=== PATIENT | male | born 1940 | race Caucasian/White ===

== ENCOUNTER 2016-07-24 18:37 | Emergency (ER) | payer MEDICARE, OTHER ==
[2016-07-24] MEDS ORDERED: NITROGLYCERIN SL TABS 0.4 MG TAB SUBLINGUAL STA (19:08)
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
[2016-07-24 19:34] LABS: Basophils % (A) 0 %; CH 29.3; Eosinophils % (A) 0 %; HCT 42.7 % (39.0-53.0); HDW 2.72; HGB 14.1 gm/dL (13.0-17.5); Luc # (Auto) 0.21; Luc % (Auto) 3; Lymphocytes # (A) 0.6 k/uL (1.0-4.8); Lymphocytes % (A) 9 %; MCH 28.6 pg (25.0-35.0); MCV 86.8 fL (80.0-100.0); Mean Platelet Volume 7.9; Monocytes # (A) 0.5 k/uL (0-1.0); Monocytes % (A) 8 %; Neutrophils # (A) 5.1 k/uL (1.3-7.7); Neutrophils % (A) 79 %; RBC 4.92 m/uL (4.30-5.90); RDW 13.3 % (11.5-15.5); WBC 6.4 k/uL (3.8-10.6); WBC (Perox) 6.66
[2016-07-24 19:44] LABS: ALT 37 U/L (21-72); AST 27 U/L (17-59); Alkaline Phosphatase 78 U/L (38-126); Anion Gap 11 mmol/L; Blood Urea Nitrogen 16 mg/dL (9-20); Calcium 9.8 mg/dL (8.4-10.2); Carbon Dioxide 26 mmol/L (22-30); Chloride 104 mmol/L (98-107); Glucose 112 mg/dL (74-99); Magnesium 1.9 mg/dL (1.6-2.3); Non-African American GFR(MDRD) >60 (>60 ml/min/1.73 sqM); Potassium 4.7 mmol/L (3.5-5.1); Sodium 141 mmol/L (137-145); Total Bilirubin 0.5 mg/dL (0.2-1.3); Total Protein 6.3 g/dL (6.3-8.2)
[2016-07-24 19:49] LABS: INR 1.1 (<1.1); Partial Thromboplastin Time 23.5 sec (22.0-30.0); Prothrombin Time 10.7 sec (9.0-12.0)
[2016-07-24 20:00] LABS: Creatine Kinase 149 U/L (55-170)
[2016-07-24 20:13] LABS: Troponin I <0.012 ng/mL (0.000-0.034)
[2016-07-24 20:22] LABS: Creatine Kinase MB 2.6 ng/mL (0.0-2.4)
--- NOTE | 2016-07-24 20:30 | XR ---
EXAMINATION TYPE: XR chest 2V DATE OF EXAM: 07/24/2016 8:14 PM COMPARISON: Prior chest x-ray 06 October 2015 HISTORY: Chest pain, coronary artery disease TECHNIQUE: Frontal and lateral views of the chest are obtained. FINDINGS: There is no focal air space opacity, pleural effusion, or pneumothorax seen. The cardiac silhouette size is within normal limits. There are overlying cardiac leads. Rib deformities on the le ft are chronic compatible with chronic fractures. Postop changes noted to the right shoulder. Promine nt lung volumes suggests underlying COPD. Compression fracture in the midthoracic spine is stable. Th e osseous structures are intact. IMPRESSION: No acute cardiopulmonary process.
[2016-07-24] MEDS ORDERED: HYDROcodone/APAP 5-325MG 1 EACH TAB PO STA (20:49)
[2016-07-24 21:36] VITALS: BP 160/78; PULSE 75; RESP 16; TEMP 98.2
== END 2016-07-24 21:35 | disposition home or self-care (01) ==
LOC: EC 18:37
DX: R07.89 Other chest pain (principal); T45.0X5A Adverse effect of antiallergic and antiemetic drugs, initial encounter; Z95.5 Presence of coronary angioplasty implant and graft; I25.10 Atherosclerotic heart disease of native coronary artery without angina pectoris; L21.9 Seborrheic dermatitis, unspecified; E78.5 Hyperlipidemia, unspecified; G47.30 Sleep apnea, unspecified; Z87.891 Personal history of nicotine dependence; Z91.040 Latex allergy status; Z79.82 Long term (current) use of aspirin; Z79.02 Long term (current) use of antithrombotics/antiplatelets; Z79.899 Other long term (current) drug therapy
CPT/HCPCS: 36415; 71020; 80053; 82550; 82553; 83735; 83880; 84484; 85025; 85379; 85610; 85730; 93005; 99285

== ENCOUNTER 2016-07-25 21:00 | Observation (INO) | payer MEDICARE, OTHER ==
[2016-07-25] MEDS ORDERED: SODIUM CHLORIDE 0.9% 1,000 ML IV STA (21:40)
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
--- NOTE | 2016-07-25 22:13 | XR ---
EXAMINATION TYPE: XR chest 2V DATE OF EXAM: 07/25/2016 10:09 PM COMPARISON: 07/24/2016 HISTORY: Weakness and dizziness TECHNIQUE: Frontal and lateral views of the chest are obtained. FINDINGS: There is no heart failure nor confluent pneumonic infiltrate. There are no hilar masses. T here is multiple left-sided healed rib fractures. Costophrenic angles are clear. IMPRESSION: No active cardiopulmonary disease. No change compared to yesterday.
--- NOTE | 2016-07-25 22:30 | CT ---
EXAMINATION TYPE: CT brain wo con DATE OF EXAM: 07/25/2016 10:19 PM COMPARISON: NONE HISTORY: Weakness today CT DLP: 1121 mGycm Automated exposure control for dose reduction was used. FINDINGS: There is cerebral cortical atrophy. There is no mass effect nor midline shift. There is no sign of in tracranial hemorrhage. The calvarium is intact. IMPRESSION: Cerebral atrophy. No acute intracranial abnormality.
[2016-07-25 22:33] LABS: Aty Lym Flag Moderate; CH 29.5; CHCM 34.1; HCT 40.4 % (39.0-53.0); HDW 2.72; HGB 13.5 gm/dL (13.0-17.5); MCH 28.9 pg (25.0-35.0); MCHC 33.3 g/dL (31.0-37.0); MCV 86.9 fL (80.0-100.0); Mean Platelet Volume 7.9; RBC 4.65 m/uL (4.30-5.90); RDW 13.6 % (11.5-15.5); WBC 5.6 k/uL (3.8-10.6); WBC (Perox) 5.79
[2016-07-25 22:45] LABS: ALT 37 U/L (21-72); AST 35 U/L (17-59); Alkaline Phosphatase 59 U/L (38-126); Anion Gap 10 mmol/L; Blood Urea Nitrogen 18 mg/dL (9-20); Calcium 9.4 mg/dL (8.4-10.2); Carbon Dioxide 25 mmol/L (22-30); Chloride 107 mmol/L (98-107); Glucose 118 mg/dL (74-99); Non-African American GFR(MDRD) >60 (>60 ml/min/1.73 sqM); Potassium 4.3 mmol/L (3.5-5.1); Sodium 142 mmol/L (137-145); Total Bilirubin 0.4 mg/dL (0.2-1.3); Total Protein 5.5 g/dL (6.3-8.2)
[2016-07-25 22:46] LABS: Partial Thromboplastin Time 23.7 sec (22.0-30.0); Prothrombin Time 10.6 sec (9.0-12.0)
[2016-07-25 22:51] LABS: Creatine Kinase 333 U/L (55-170)
[2016-07-25 22:54] LABS: Add Differential Manual Differential
[2016-07-25 22:56] LABS: Nucleated Red Blood Cells 0 /100 WBC (0-0); Total Cells Counted 100
[2016-07-25 22:57] LABS: Manual Review Performed
[2016-07-25 23:04] LABS: Troponin I <0.012 ng/mL (0.000-0.034)
[2016-07-25 23:06] LABS: Creatine Kinase MB 5.6 ng/mL (0.0-2.4)
[2016-07-25 23:10] LABS: Appearance,Urine Clear (Clear); Bilirubin,Urine Negative (Negative); Glucose,Urine (UA) Negative (Negative); Ketones,Urine Trace (Negative); Leukocyte Esterase,Urine Negative (Negative); Nitrite,Urine Negative (Negative); Protein,Urine Trace (Negative); UA Billing (MACRO vs. MICRO) CHEM; Urobilinogen,Urine <2.0 mg/dL (<2.0)
[2016-07-25] MEDS ORDERED: HYDROcodone/APAP 5-325MG 1 EACH TAB PO STA (23:48)
[2016-07-25] MEDS ORDERED: NITROGLYCERIN SL TABS 0.4 MG TAB SUBLINGUAL PRN (23:57)
[2016-07-26 00:45] VITALS: BMI 29.5
[2016-07-26] MEDS: NITROGLYCERIN OINT 1 INCH/GM PACKET TOPICAL SCH ×3 (01:15→12:07)
[2016-07-26 02:56] LABS: Cholesterol 137 mg/dL (<200); HDL Cholesterol 37 mg/dL (40-60); Triglycerides 135 mg/dL (<150)
[2016-07-26 03:01] LABS: Creatine Kinase 305 U/L (55-170)
[2016-07-26 03:15] LABS: Troponin I <0.012 ng/mL (0.000-0.034)
[2016-07-26 03:23] LABS: Creatine Kinase MB 5.3 ng/mL (0.0-2.4)
[2016-07-26] MEDS: ALPRAZolam 0.25 MG TAB PO PRN ×3 (04:19→14:44)
[2016-07-26] MEDS: HYDROcodone/APAP 5-325MG 1 EACH TAB PO PRN ×2 (05:39→11:59)
[2016-07-26] MEDS ORDERED: ASPIRIN 325 MG TAB PO SCH (09:00)
[2016-07-26] MEDS ORDERED: CLOPIDOGREL 75 MG TAB PO SCH (09:00)
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
[2016-07-26 09:30] LABS: Creatine Kinase 338 U/L (55-170)
[2016-07-26 09:43] LABS: Troponin I <0.012 ng/mL (0.000-0.034)
[2016-07-26 09:53] LABS: Creatine Kinase MB 6.1 ng/mL (0.0-2.4)
[2016-07-26 10:08] LABS: Glucose,Whole Blood 98 mg/dL (75-99)
[2016-07-26 12:44] VITALS: BP 148/72; PULSE 59; RESP 18; TEMP 97.7
[2016-07-26] MEDS ORDERED: ESCITALOPRAM 5 MG TAB PO STA (12:51)
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
[2016-07-26] MEDS ORDERED: amLODIPine 5 MG TAB PO SCH (21:00)
[2016-07-26] MEDS ORDERED: ATORVASTATIN 80 MG TAB PO SCH (21:00)
== END 2016-07-26 15:27 | disposition home or self-care (01) ==
LOC: EC 21:00 → 3OBS 23:57 → INTOOBSV 23:57
PROVIDERS: ADMIT Internal Medicine; ATTEND Internal Medicine
DX: R07.89 Other chest pain (principal); R42 Dizziness and giddiness; R00.1 Bradycardia, unspecified; I45.2 Bifascicular block; I11.9 Hypertensive heart disease without heart failure; E78.5 Hyperlipidemia, unspecified; K21.9 Gastro-esophageal reflux disease without esophagitis; F41.9 Anxiety disorder, unspecified; M19.90 Unspecified osteoarthritis, unspecified site; G47.30 Sleep apnea, unspecified; I25.10 Atherosclerotic heart disease of native coronary artery without angina pectoris; F41.0 Panic disorder [episodic paroxysmal anxiety]; Z91.14 Patient's other noncompliance with medication regimen; Z99.89 Dependence on other enabling machines and devices; Z79.899 Other long term (current) drug therapy; Z86.73 Personal history of transient ischemic attack (TIA), and cerebral infarction without residual deficits; Z95.5 Presence of coronary angioplasty implant and graft; Z89.021 Acquired absence of right finger(s); Z87.891 Personal history of nicotine dependence; Z79.82 Long term (current) use of aspirin; Z79.02 Long term (current) use of antithrombotics/antiplatelets; Z88.8 Allergy status to other drugs, medicaments and biological substances; Z80.1 Family history of malignant neoplasm of trachea, bronchus and lung
CPT/HCPCS: 36415; 93005; 85379; 84439; 84481; 80061; 80053; 82550 ×2; 82553 ×2; 83735; 84100; 84443; 84484 ×2; 85025; 85610; 85730; 81003; 71020; 70450; 99285; 96360; 96361; G0378 ×2

== ENCOUNTER → 2016-09-11 | Outpatient (CLI) | payer MEDICARE, OTHER ==
[2016-09-11 15:19] LABS: CH 28.8; CHCM 31.8; HCT 40.2 % (39.0-53.0); HDW 2.65; HGB 13.1 gm/dL (13.0-17.5); MCH 29.5 pg (25.0-35.0); MCHC 32.5 g/dL (31.0-37.0); Mean Platelet Volume 7.5; RBC 4.42 m/uL (4.30-5.90); RDW 13.2 % (11.5-15.5); WBC 6.2 k/uL (3.8-10.6)
== END | disposition home or self-care (01) ==
LOC: LABWHC1 14:59
PROVIDERS: ATTEND Internal Medicine Interventional Cardiology
DX: I25.10 Atherosclerotic heart disease of native coronary artery without angina pectoris (principal); K92.2 Gastrointestinal hemorrhage, unspecified
CPT/HCPCS: 36415; 82272; 85027

== ENCOUNTER → 2017-09-16 | Outpatient (CLI) | payer MEDICARE, OTHER ==
[2017-09-16 15:19] LABS: HCT 34.6 % (39.0-53.0); HGB 10.8 gm/dL (13.0-17.5); Hypochromasia Moderate; MCH 24.6 pg (25.0-35.0); MCHC 31.1 g/dL (31.0-37.0); MCV 79.2 fL (80.0-100.0); Mean Platelet Volume 7.7; Platelet Count 302 k/uL (150-450); RBC 4.38 m/uL (4.30-5.90); RDW 14.1 % (11.5-15.5); WBC 8.8 k/uL (3.8-10.6)
[2017-09-16 15:38] LABS: Anion Gap 8 mmol/L; Blood Urea Nitrogen 30 mg/dL (9-20); Carbon Dioxide 28 mmol/L (22-30); Chloride 104 mmol/L (98-107); Potassium 4.8 mmol/L (3.5-5.1); Sodium 140 mmol/L (137-145)
== END | disposition home or self-care (01) ==
LOC: LABPAT 14:33
PROVIDERS: ATTEND Internal Medicine Interventional Cardiology
DX: Z01.812 Encounter for preprocedural laboratory examination (principal); I25.10 Atherosclerotic heart disease of native coronary artery without angina pectoris
CPT/HCPCS: 36415; 80051; 82565; 84520; 85027

== ENCOUNTER 2017-09-30 08:50 | Day surgery (SDC) | payer MEDICARE, OTHER ==
[2017-09-24 16:04] VITALS: BMI 29.0
[~2017-09-30 08:50] MED LIST: ALPRAZolam 0.25 MG TAB PO PRN; ALPRAZolam 0.5 MG TAB PO PRN; ASPIRIN 325 MG TAB PO STA; ATORVASTATIN 80 MG TAB PO STA; NITROGLYCERIN SL TABS 0.4 MG TAB SUBLINGUAL PRN; SODIUM CHLORIDE 0.9% 1,000 ML in EMPTY BAG 1 BAG IV ONE
[2017-09-30 10:05] VITALS: PULSE 61; TEMP 97.9
[2017-09-30] MEDS ORDERED: LIDOCAINE 2% INJ 20 MG/ML (20 ML MDV) ONE (10:40)
[2017-09-30] MEDS ORDERED: MIDAZOLAM 2 MG/2 ML VIAL ONE (10:40)
[2017-09-30] MEDS ORDERED: diphenhydrAMINE 50 MG/ML 1 ML VIAL ONE (10:40)
[2017-09-30] MEDS ORDERED: diphenhydrAMINE 50 MG/ML 1 ML VIAL IVP ONE (10:55)
[2017-09-30] MEDS ORDERED: fentaNYL (PF) 50 MCG/ML 2 ML AMP ONE (10:57)
[2017-09-30] MEDS ORDERED: LIDOCAINE 2% INJ 20 MG/ML SQ ONE (10:59)
[2017-09-30] MEDS ORDERED: fentaNYL (PF) 50 MCG/ML 2 ML AMP IVP ONE (11:01)
[2017-09-30] MEDS ORDERED: NITROGLYCERIN 1000MCG/10ML SYRINGE INTRACORON ONE ×2 (11:12)
[2017-09-30] MEDS ORDERED: IOHEXOL 350 MG/ML (PER ML) 100ML BTL INJ ONE (11:25)
[2017-09-30] MEDS ORDERED: SODIUM CHLORIDE 0.9% 1,000 ML IV SCH (11:45)
--- NOTE | 2017-09-30 12:05 | CC ---
CARDIAC CATHETERIZATION REPORT DATE OF SERVICE: 09/30/2017. PROCEDURE: Left heart catheterization and coronary angiography. PERFORMED BY: Dr. Glenis Mccullough. Moderate conscious sedation time was 22 minutes. CLINICAL INFORMATION: Mr. Rommel Soriano is a 77-year-old gentleman with a known history of CAD, hypertension, hyperlipidemia. I performed stenting of his left anterior descending coronary artery in August and May of 2016. In September of 2015, I performed stenting of mid circumflex. He is known to have a nondominant subtotally occluded RCA. Because of abnormal stress test and symptoms of angina, he was advised cardiac catheterization to assess the status of the coronaries. The risks, benefits, options, rationale were explained to the patient in great detail. He understood all details and wished to proceed with the procedure. PROCEDURE NOTE: Under local anesthesia and strict aseptic precautions, a 6-Romansh introducer was placed in the right femoral artery. Standard Michael catheters were used to perform coronary angiography. The pigtail catheter was used to check LV pressure, but LV-gram was not performed. The patient tolerated the procedure well. The sheath was taken out and Angio-Seal device used to secure hemostasis and he was sent to the room in stable condition. CARDIAC CATHETERIZATION FINDINGS: Left ventricular end-diastolic pressure was 12 mmHg and there was no gradient across the aortic valve. CORONARY ANGIOGRAPHY FINDINGS: RIGHT CORONARY ARTERY: Technically a nondominant vessel, subtotally occluded with limited antegrade flow. Limited amount of myocardium is supplied by it. LEFT MAIN CORONARY ARTERY: Short patent disease-free vessel that bifurcates into LAD and circumflex. Left main itself is free of significant disease. LEFT ANTERIOR DESCENDING CORONARY ARTERY: This vessel in its proximal portion was stented twice, once initially in August 2015 and subsequently in May for a restenotic lesion. The LAD is now widely patent with no more than 30% narrowing. There is a brisk flow noted. There is, however, diffuse disease in the mid and distal LAD and distal LAD just before it curves over the apex has a lesion as well, but this is unchanged. Overall LAD stented segment is widely patent with brisk flow. Distal LAD has diffuse disease unchanged. LEFT POSTERIOR CIRCUMFLEX CORONARY ARTERY: Dominant vessel, gives off a first obtuse marginal branch and then there is a stented segment. Stented segment is widely patent. Distally it bifurcates into PDA and PLV, both of which supply a sizable amount of myocardium. No significant disease in the circumflex system is noted other than diffuse disease in the branches of the circumflex. The stented segment is widely patent. LEFT VENTRICULOGRAM: This was not performed. FINAL IMPRESSION: This patient has a widely patent left anterior descending coronary artery and circumflex at the site of previous stenting. There is diffuse disease in the mid and distal left anterior descending artery and also branches of distal circumflex. Right coronary artery is nondominant, subtotally occluded, unchanged from before and filling pressures are normal. RECOMMENDATION: Findings were discussed with the patient. There was no family available. He will be discharged later on today if he remains stable and I will see him in the office this week. MMODL / IJN: [id number] /
--- NOTE | 2017-09-30 12:08 | LTR ---
September 30, [address] Rosen: Thank you for the opportunity to participate in the care of Mr. Rommel Soriano. Please find enclosed my detailed cardiac cath report for your records. I am pleased to report to you that his stented segments are widely patent and he has no obstructive disease and therefore we will pursue medical therapy with risk factor modification. Thank you for the referral and please call for questions. With kindest regards. Sincerely yours, MD MILLER Jackson / VANESA: [id number] /
[2017-09-30 17:30] VITALS: BP 125/66; RESP 18
== END 2017-09-30 18:01 | disposition home or self-care (01) ==
LOC: CATHCVL 08:50
PROVIDERS: ATTEND Internal Medicine Interventional Cardiology
DX: I25.110 Atherosclerotic heart disease of native coronary artery with unstable angina pectoris (principal); Z95.5 Presence of coronary angioplasty implant and graft; I10 Essential (primary) hypertension; E78.00 Pure hypercholesterolemia, unspecified; E78.5 Hyperlipidemia, unspecified; Z87.891 Personal history of nicotine dependence; Z79.02 Long term (current) use of antithrombotics/antiplatelets; Z79.82 Long term (current) use of aspirin; Z79.899 Other long term (current) drug therapy; Z91.040 Latex allergy status
CPT/HCPCS: 93458; C1760; C1894; C1769 ×2; J2001; J1200; Q9967; J3010

== ENCOUNTER 2018-02-10 10:45 | Emergency (ER) | payer MEDICARE, OTHER ==
[2018-02-10 10:50] VITALS: TEMP 97.4
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
[2018-02-10 11:33] LABS: HCT 33.4 % (39.0-53.0); HGB 10.5 gm/dL (13.0-17.5); Hypochromasia Slight; MCH 26.1 pg (25.0-35.0); MCHC 31.4 g/dL (31.0-37.0); MCV 83.2 fL (80.0-100.0); Mean Platelet Volume 7.3; Platelet Count 231 k/uL (150-450); RBC 4.01 m/uL (4.30-5.90); RDW 15.4 % (11.5-15.5); WBC 6.3 k/uL (3.8-10.6)
[2018-02-10 11:41] LABS: Anion Gap 6 mmol/L; Blood Urea Nitrogen 33 mg/dL (9-20); Calcium 8.5 mg/dL (8.4-10.2); Carbon Dioxide 22 mmol/L (22-30); Chloride 110 mmol/L (98-107); Glucose 106 mg/dL (74-99); Potassium 4.7 mmol/L (3.5-5.1); Sodium 138 mmol/L (137-145)
[2018-02-10 11:57] LABS: Eosinophils # (M) 0.63 k/uL (0-0.7); Lymphocytes # (M) 0.76 k/uL (1.0-4.8); Monocytes # (M) 0.25 k/uL (0-1.0); Neutrophils # (M) 4.66 k/uL (1.3-7.7); Neutrophils % (M) 74 %; Nucleated Red Blood Cells 0 /100 WBC (0-0); Total Cells Counted 100
[2018-02-10 11:58] LABS: Ovalocytes Present
--- NOTE | 2018-02-10 12:03 | XR ---
EXAMINATION TYPE: XR chest 2V DATE OF EXAM: 02/10/2018 COMPARISON: 07/25/2016 HISTORY: 77-year-old male with dizziness, shortness of breath, pain TECHNIQUE: Frontal and lateral views FINDINGS: Heart normal size. Aorta and pulmonary vasculature within normal limits. Lungs and pleural spaces are clear. Multiple old healed left-sided rib fracture deformities. Chronic anterior wedging of a midtho racic vertebral body. IMPRESSION: No acute cardiopulmonary process. Stable healed left-sided rib fracture deformities and anterior wedg ing of a midthoracic vertebral body.
[2018-02-10 12:13] LABS: Appearance,Urine Cloudy (Clear); Bilirubin,Urine Negative (Negative); Blood,Urine Negative (Negative); Color,Urine Light Yellow; Glucose,Urine (UA) Negative (Negative); Ketones,Urine Negative (Negative); Leukocyte Esterase,Urine Negative (Negative); Mucus,Urine Rare /hpf; Nitrite,Urine Negative (Negative); Protein,Urine Negative (Negative); Specific Gravity,Urine 1.016 (1.001-1.035); Urobilinogen,Urine <2.0 mg/dL (<2.0)
[2018-02-10 13:13] VITALS: RESP 18
[2018-02-10] MEDS ORDERED: LORazepam 1 MG TAB PO STA (13:52)
[2018-02-10 13:58] VITALS: BP 150/92; PULSE 72
== END 2018-02-10 14:07 | disposition home or self-care (01) ==
LOC: EC 10:45
DX: R55 Syncope and collapse (principal); E86.0 Dehydration; F41.9 Anxiety disorder, unspecified; I25.10 Atherosclerotic heart disease of native coronary artery without angina pectoris; E78.5 Hyperlipidemia, unspecified; I10 Essential (primary) hypertension; M19.90 Unspecified osteoarthritis, unspecified site; G47.30 Sleep apnea, unspecified; Z99.89 Dependence on other enabling machines and devices; Z95.5 Presence of coronary angioplasty implant and graft; Z87.891 Personal history of nicotine dependence; Z79.02 Long term (current) use of antithrombotics/antiplatelets; Z79.82 Long term (current) use of aspirin; Z79.899 Other long term (current) drug therapy; Z91.040 Latex allergy status; Z88.4 Allergy status to anesthetic agent
CPT/HCPCS: 36415; 71046; 80048; 81001; 84484; 85025; 99285

== ENCOUNTER 2019-04-10 07:31 | Inpatient (IN) | payer MEDICARE, OTHER ==
[2019-04-10] MEDS ORDERED: ASPIRIN 81 MG PO STA (07:46)
[2019-04-10] MEDS ORDERED: NITROGLYCERIN OINT 1 INCH/GM PACKET TOPICAL STA (07:46)
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
[2019-04-10] MEDS ORDERED: ONDANSETRON 4 MG/2 ML VIAL IVP STA (07:55)
--- NOTE | 2019-04-10 08:23 | XR ---
EXAMINATION TYPE: XR chest 2V DATE OF EXAM: 04/10/2019 HISTORY: Chest Pain. REFERENCE: Previous study dated 02/10/2018. FINDINGS: The lungs are clear. Pleural space are clear. Heart size is within normal limits. There is evidence of old, healed right-sided rib fractures. IMPRESSION: NO ACUTE CARDIOPULMONARY ABNORMALITY.
[2019-04-10 08:30] LABS: Albumin 2.8 g/dL (3.5-5.0); Calcium 8.4 mg/dL (8.4-10.2); Magnesium 2.2 mg/dL (1.6-2.3); Potassium 3.8 mmol/L (3.5-5.1); Total Bilirubin 0.2 mg/dL (0.2-1.3); Total Protein 4.7 g/dL (6.3-8.2)
[2019-04-10 08:41] LABS: D-Dimer 0.26 mg/L FEU (<0.60); Hypochromasia Slight; MCH 28.1 pg (25.0-35.0); MCHC 33.6 g/dL (31.0-37.0); MCV 83.7 fL (80.0-100.0); Platelet Count 268 k/uL (150-450); Prothrombin Time 10.3 sec (9.0-12.0); RBC 2.18 m/uL (4.30-5.90); RDW 13.6 % (11.5-15.5); WBC 10.3 k/uL (3.8-10.6)
[2019-04-10 08:44] LABS: Partial Thromboplastin Time 20.3 sec (22.0-30.0)
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
[2019-04-10 08:47] LABS: HGB 6.1 gm/dL (13.0-17.5)
[2019-04-10 08:48] LABS: HCT 18.3 % (39.0-53.0)
[2019-04-10] MEDS ORDERED: HYDROcodone/APAP 5-325MG 1 EACH TAB PO STA (09:29)
[2019-04-10] MEDS ORDERED: PANTOPRAZOLE 40 MG/10 ML VIAL IVP STA (09:30)
[2019-04-10] MEDS ORDERED: NALOXONE 0.4 MG/ML 1 ML VIAL IV PRN (09:31)
[2019-04-10] MEDS ORDERED: ONDANSETRON 4 MG/2 ML VIAL IVP PRN (09:31)
[2019-04-10 09:40] LABS: Lymphocytes # (M) 0.72 k/uL (1.0-4.8); Monocytes # (M) 0.41 k/uL (0-1.0); Neutrophils % (M) 89 %; Nucleated Red Blood Cells 0 /100 WBC (0-0); Total Cells Counted 100
[2019-04-10 09:42] LABS: Anisocytosis (M) Present
[2019-04-10] MEDS ORDERED: HYDROcodone/APAP 5-325MG 1 EACH TAB PO PRN (10:14)
--- NOTE | 2019-04-10 11:36 | CT ---
EXAMINATION TYPE: CT angio chest DATE OF EXAM: 04/10/2019 11:08 AM COMPARISON: HISTORY: Dizziness and chest pain. CT DLP: 372.5 mGycm Automated exposure control for dose reduction was used. CONTRAST: CTA scan of the thorax is performed with IV Contrast, patient injected with 100 mL of Isovue 370, pul monary embolism protocol. . FINDINGS: There are subpleural blebs in the upper lobes bilaterally, greater on the right than the le ft. There is dependent atelectasis in the dependent portions of the lungs. There is some patchy groun dglass opacity in the left lower lung which May represent some alveolitis or early pneumonia. Lungs o therwise clear. There is no significant axillary or hilar adenopathy. There is some shotty adenopathy in the aortopul monary window. No pathologically enlarged lymph nodes are seen. There is no evidence of pulmonary embolus. Aorta is normal in size without evidence of dissection. There is no pleural or pericardial fluid. The heart is not enlarged. There are several low attenuating lesions within the left lobe of the liver which likely represent cy sts. There is a 1.1 cm calculus in the anterior middle pole calyx of the left kidney. Visualized port ions of the upper abdomen are otherwise unremarkable. There is degenerative disc disease within the thoracic spine. IMPRESSION: 1. THIS EXAMINATION IS NEGATIVE FOR PULMONARY EMBOLUS. 2. FINDINGS SUGGESTIVE OF MILD EMPHYSEMA. 3. LOW-ATTENUATION LESIONS WITHIN THE LIVER LIKELY REPRESENT CYSTS. THIS COULD BE CONFIRMED WITH ULTR ASOUND. 4. NONOBSTRUCTING LEFT-SIDED NEPHROLITHIASIS. 5. DEGENERATIVE CHANGES WITHIN THE SPINE.
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
[2019-04-10 15:09] LABS: Hypochromasia Moderate; MCH 27.9 pg (25.0-35.0); MCHC 32.7 g/dL (31.0-37.0); MCV 85.5 fL (80.0-100.0); Platelet Count 286 k/uL (150-450); RBC 2.25 m/uL (4.30-5.90); RDW 13.8 % (11.5-15.5); WBC 10.9 k/uL (3.8-10.6)
[2019-04-10] MEDS: HYDROcodone/APAP 5-325MG 1 EACH TAB PO PRN ×3 (15:11→23:15)
[2019-04-10] MEDS: SODIUM CHLORIDE 0.9% 1,000 ML IV SCH (15:14)
[2019-04-10 15:16] LABS: HCT 19.3 % (39.0-53.0); HGB 6.3 gm/dL (13.0-17.5)
[2019-04-10 15:18] LABS: Lymphocytes # (M) 0.76 k/uL (1.0-4.8); Monocytes # (M) 0.33 k/uL (0-1.0); Neutrophils % (M) 90 %; Nucleated Red Blood Cells 0 /100 WBC (0-0); Total Cells Counted 100
--- NOTE | 2019-04-10 15:59 | ECHOF ---
Referral Reason:cad MEASUREMENTS -------- HEIGHT: 170.2 cm WEIGHT: 83.9 kg BP: RVIDd: 2.3 cm (< 3.3) IVSd: 1.3 cm (0.6 - 1.1) LVIDd: 4.4 cm (3.9 - 5.3) LVPWd: 1.6 cm (0.6 - 1.1) IVSs: 1.5 cm LVIDs: 3.9 cm LVPWs: 1.5 cm LA Diam: 4.1 cm (2.7 - 3.8) LAESV Index (A-L): 31.93 ml/m Ao Diam: 4.2 cm (2.0 - 3.7) AV Cusp: 1.7 cm (1.5 - 2.6) MV EXCURSION: 22.256 mm (> 18.000) MV EF SLOPE: 112 mm/s (70 - 150) EPSS: 1.7 cm MV E Rodolfo: 0.52 m/s MV DecT: 218 ms MV A Rodolfo: 0.77 m/s MV E/A Ratio: 0.67 RAP: 5.00 mmHg RVSP: 23.73 mmHg FINDINGS -------- Sinus rhythm with extra systolic beats. Undetermined rhythm. This was a technically adequate study. The left ventricular size is normal. Left ventricular wall thickness is normal. Overall left vent ricular systolic function is normal with, an EF between 55 - 60 %. The diastolic filling pattern is normal for the age of the patient 6.69. The right ventricle is normal in size. LA is midly dilated 29-33ml/m2. The right atrial size is normal. There is mild aortic valve sclerosis. The mitral valve leaflets are mildly thickened. Mild mitral regurgitation is present. Mild tricuspid regurgitation present. There is no evidence of pulmonary hypertension. The right v entricular systolic pressure, as measured by Doppler, is 23.73mmHg. Trace/mild (physiologic) pulmonic regurgitation. The aortic root size is normal. There is no pericardial effusion. CONCLUSIONS -------- 1. Sinus rhythm with extra systolic beats. 2. This was a technically adequate study. 3. Left ventricular wall thickness is normal. 4. Overall left ventricular systolic function is normal with, an EF between 55 - 60 %. 5. The diastolic filling pattern is normal for the age of the patient 6.69 6. LA is midly dilated 29-33ml/m2. 7. There is mild aortic valve sclerosis. 8. The mitral valve leaflets are mildly thickened. 9. Mild mitral regurgitation is present. 10. Mild tricuspid regurgitation present. 11. There is no evidence of pulmonary hypertension. 12. Trace/mild (physiologic) pulmonic regurgitation. 13. The aortic root size is normal. 14. There is no pericardial effusion. DIGESTER: Lindy Quintana RDCS
[2019-04-10] MEDS: traMADol 50 MG TAB PO PRN (16:12)
--- NOTE | 2019-04-10 17:08 | CONS ---
CONSULTATION Mr. Soriano is an 79-year-old male with known history of coronary artery disease, history of hyperlipidemia and hypertension who presented with symptoms of anxiety and a syncopal episode. He found himself on the ground yesterday. He had some chest discomfort with it. He denies any recent syncopal episode. He has been followed by Dr. Glenis Mccullough in the past and has undergone stenting of his left circumflex and the left anterior descending artery, underwent repeat cardiac catheterization most recently in September of 2017, and at that time he had patent stents with a small nondominant right coronary artery that is subtotally occluded with diffuse disease in the distal LAD. His left ventricular systolic function in the past showed apical septal hypokinesis with an ejection fraction of 50%. On presentation he was noted to be severely anemic. The patient has dark stool related to the fact that he takes iron on a regular basis because of low iron, although he denies any recent clear bleeding. He underwent colonoscopy about 7 years ago and was told that he had an early ulcer, although I do not have the details. He had some chest discomfort. He started with diarrhea a few days ago and started with the symptoms subsequently. He is pain-free at the time of my evaluation. His coronary risk factors are positive for hypertension and hyperlipidemia. He is nondiabetic. His medications include aspirin, Plavix 75 mg daily, Lipitor 40 mg daily, Norvasc 5 mg daily, iron, glucosamine, hydrocodone and tramadol. REVIEW OF SYSTEMS: RESPIRATORY SYSTEM: He has dyspnea on exertion. No recent wheezing or cough. GI SYSTEM: He has the dark stool related to the iron. He denies any nausea or vomiting. He had diarrhea and prior to that constipation. SYSTEM: No dysuria or hematuria. NERVOUS SYSTEM: No stroke or seizure. PHYSICAL EXAMINATION: This patient is an 79-year-old male, alert, oriented, in no apparent distress. Blood pressure 114/70 with a heart rate in the 90s. HEAD: Normocephalic. Eyes: Sclerae anicteric. Conjunctivae pale. NECK: Good carotid upstroke. No bruit. LUNGS: Clear to auscultation. HEART: Regular rate and rhythm. S1, S2. No S3, with systolic murmur. No diastolic murmur. No rub. ABDOMEN: Soft, nontender. Positive bowel sounds. No organomegaly. EXTREMITIES: No edema. Intact distal pulses. LAB DATA/IMAGING: Lab data revealed a hemoglobin of 6.1, white blood cells of 10.3, platelet count 268. BUN and creatinine of 58 and 1.07. Troponin less than 0.012. NT-Pro-BNP 123. EKG revealed a sinus mechanism, left axis deviation, minor nonspecific ST-T wave changes. Brain CT showed no acute changes with no acute bleeding. Chest x-ray is unremarkable. IMPRESSION: 1. Severe anemia of unclear etiology; could be gastrointestinal bleeding. 2. Syncope, most probably related to the anemia. 3. Chest discomfort, probably exacerbated by the low hemoglobin. 4. History of coronary artery disease with no clear evidence of acute unstable pattern. 5. History of hypertension. 6. Hyperlipidemia. RECOMMENDATIONS: From the cardiac standpoint, his aspirin and Plavix are on hold. I will decrease the dose of his amlodipine. The patient will require evaluation regarding his anemia and the etiology. He will be evaluated by Dr. Durbin. I will obtain an echocardiogram with Doppler to evaluate the left ventricular systolic function and, depending on his status, further recommendations will be made. Thank you for this consult. Will follow with you. MMODL / IJN: [id number] /
[2019-04-10] MEDS: PANTOPRAZOLE 40 MG/10 ML VIAL IVP SCH (19:49)
[2019-04-10] MEDS: ATORVASTATIN 40 MG TAB PO SCH (19:49)
[2019-04-10 20:43] LABS: Hypochromasia Slight; MCH 28.8 pg (25.0-35.0); MCHC 33.5 g/dL (31.0-37.0); MCV 86.1 fL (80.0-100.0); Mean Platelet Volume 7.7; Platelet Count 237 k/uL (150-450); Poikilocytosis Slight; RBC 2.44 m/uL (4.30-5.90); RDW 14.2 % (11.5-15.5)
[2019-04-10 20:54] LABS: Neutrophils % (M) 86 %; Nucleated Red Blood Cells 0 /100 WBC (0-0); Total Cells Counted 100
[2019-04-10 23:20] LABS: Iron Saturation 4.39 (15.00-50.00)
[2019-04-11 01:53] LABS: HCT 20.1 % (39.0-53.0); Hypochromasia Slight; MCH 28.5 pg (25.0-35.0); MCHC 33.7 g/dL (31.0-37.0); MCV 84.6 fL (80.0-100.0); Platelet Count 221 k/uL (150-450); Poikilocytosis Slight; RBC 2.38 m/uL (4.30-5.90); RDW 14.1 % (11.5-15.5); WBC 8.3 k/uL (3.8-10.6)
[2019-04-11 02:00] LABS: HGB 6.8 gm/dL (13.0-17.5)
[2019-04-11] MEDS: traMADol 50 MG TAB PO PRN (02:02)
[2019-04-11 03:21] LABS: Basophils # (M) 0.08 k/uL (0-0.2); Eosinophils # (M) 0.25 k/uL (0-0.7); Lymphocytes # (M) 1.08 k/uL (1.0-4.8); Neutrophils % (M) 77 %; Nucleated Red Blood Cells 0 /100 WBC (0-0); Total Cells Counted 100
[2019-04-11 05:00] LABS: African American GFR (CKD) >90 (>60 ml/min/1.73 sqM); Anion Gap 5 mmol/L; Blood Urea Nitrogen 35 mg/dL (9-20); Calcium 8.1 mg/dL (8.4-10.2); Carbon Dioxide 25 mmol/L (22-30); Chloride 109 mmol/L (98-107); Glucose 95 mg/dL (74-99); Potassium 3.7 mmol/L (3.5-5.1); Sodium 139 mmol/L (137-145)
[2019-04-11] MEDS: HYDROcodone/APAP 5-325MG 1 EACH TAB PO PRN ×5 (06:07→22:41)
[2019-04-11 07:32] LABS: HCT 20.8 % (39.0-53.0); HGB 7.3 gm/dL (13.0-17.5); Hypochromasia Slight; MCH 29.8 pg (25.0-35.0); MCV 84.9 fL (80.0-100.0); Platelet Count 205 k/uL (150-450); Poikilocytosis Moderate; RBC 2.45 m/uL (4.30-5.90); RDW 14.2 % (11.5-15.5); WBC 6.3 k/uL (3.8-10.6)
[2019-04-11] MEDS: SODIUM CHLORIDE 0.9% 1,000 ML IV SCH (08:59)
[2019-04-11] MEDS ORDERED: amLODIPine 5 MG TAB PO SCH (09:00)
[2019-04-11 09:06] LABS: Eosinophils # (M) 0.44 k/uL (0-0.7); Lymphocytes # (M) 0.88 k/uL (1.0-4.8); Monocytes # (M) 0.25 k/uL (0-1.0); Neutrophils % (M) 75 %; Nucleated Red Blood Cells 0 /100 WBC (0-0); Total Cells Counted 100
[2019-04-11] MEDS: PANTOPRAZOLE 40 MG/10 ML VIAL IVP SCH ×2 (09:55→19:47)
[2019-04-11] MEDS: ASCORBIC ACID 500 MG TAB PO SCH (09:55)
[2019-04-11] MEDS: amLODIPine 2.5 MG TAB PO SCH (09:55)
--- NOTE | 2019-04-11 12:12 | PN ---
PROGRESS NOTE Mr. Soriano is an 79-year-old male with a known history of coronary artery disease, hypertension, hyperlipidemia, who had a syncopal episode yesterday. He had significant anemia on presentation and is scheduled to undergo colonoscopy. He is feeling better today. He has no further symptoms of chest discomfort. His breathing has been stable. He had no symptoms of dizziness or further syncope. He continues to be at this time on amlodipine 2.5 mg daily, Lipitor 40 mg daily, Protonix and tramadol. PHYSICAL EXAMINATION: Blood pressure 130/60 with a heart rate in the 60s. LUNGS: Clear. HEART: Regular rate and rhythm, S1, S2. No S3. No rub. ABDOMEN: Soft and nontender. EXTREMITIES: No edema. LAB DATA: Hemoglobin 7.3, BUN and creatinine of 35 and 0.86. IMPRESSION: 1. Severe anemia of unclear etiology, has been followed by Dr. Wallis, scheduled to undergo further evaluation. 2. History of coronary artery disease, followed by Dr. Mccullough. He had echocardiogram yesterday revealed a preserved systolic function with mild mitral and tricuspid regurgitation. 3. History of hypertension. 4. History of hyperlipidemia. RECOMMENDATIONS: Patient's aspirin and Plavix continues to be on hold. He will undergo the GI workup and depending on that, further recommendations will be made. His syncopal episode is most likely related to the severe anemia. MMODL / IJN: [id number] /
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
[2019-04-11 13:11] LABS: HCT 25.3 % (39.0-53.0); HGB 8.3 gm/dL (13.0-17.5); Hypochromasia Slight; MCH 28.8 pg (25.0-35.0); MCV 87.2 fL (80.0-100.0); Mean Platelet Volume 7.7; Platelet Count 263 k/uL (150-450); Poikilocytosis Moderate; RDW 14.5 % (11.5-15.5); WBC 8.2 k/uL (3.8-10.6)
[2019-04-11 14:21] LABS: Basophils # (M) 0.08 k/uL (0-0.2); Eosinophils # (M) 0.08 k/uL (0-0.7); Lymphocytes # (M) 0.66 k/uL (1.0-4.8); Monocytes # (M) 0.74 k/uL (0-1.0); Neutrophils % (M) 81 %; Nucleated Red Blood Cells 0 /100 WBC (0-0); Total Cells Counted 100
[2019-04-11] MEDS ORDERED: PEG 3350-NA SULF,BICARB,CL/KCL 4,000 ML BOTTLE PO ONE (17:00)
--- NOTE | 2019-04-11 18:35 | CONS ---
CONSULTATION DATE OF CONSULTATION: 04/11/2019 REASON FOR CONSULTATION: Severe symptomatic anemia and dark-colored stools. HISTORY OF PRESENT ILLNESS: The patient is an 79-year-old pleasant white male with history of coronary artery disease, hypertension, hyperlipidemia, was admitted to hospital because of some shortness of breath, dizziness, lightheadedness for the last few days duration. He also was having some dark colored stools. Came to the emergency room and was noted to have a hemoglobin of 6.9 g/dL and required 2 units of PRBC transfusion. We are hence consulted in regards to this anemia. The patient states that he has been having intermittent dark colored stools since he has been taking iron for the last several years. He denies any abdominal pain. He reports no nausea, vomiting, or abdominal pain. He has been taking Aleve on and off for the last few days for chronic back pain. He recalls having an EGD and colonoscopy approximately 7 or 10 years ago and according to the patient, it was within normal limits. In the emergency room, he did have a CTA done, which was unremarkable and was having some chest pain and hence, Cardiology was consulted who recommended symptomatic management. PAST MEDICAL HISTORY: Significant for coronary artery disease, gastroesophageal reflux disease, hypertension, hyperlipidemia, and sleep apnea. PAST SURGICAL HISTORY: Tonsillectomy, cardiac catheterization, nasal septal surgery, thumb surgery, cardiac cath with stent placement 4 years ago, EGD, colonoscopy more than 5 years ago. SOCIAL HISTORY: Former smoker. No alcohol use. FAMILY HISTORY: Mother had lung CA. Father unable to obtain. MEDICATIONS: At home, vitamin C, glucosamine, [place], probiotic, aspirin, tramadol, Maalox, Plavix, Norvasc, Lipitor, 9 years. ALLERGIES: VERSED. REVIEW OF SYSTEMS: He does complain of some shortness of breath, but denies any chest pain. Neurology unremarkable. Psychiatric unremarkable. ENT/VISION: Unremarkable. CONSTITUTIONAL: No recent weight loss. No fever, chills, night sweats. Hematology: Severe anemia. Endocrine unremarkable. Psychiatric unremarkable. PHYSICAL EXAMINATION: He appears comfortable. No apparent distress. Vital signs are stable. Blood pressure is 133/65, pulse is 58, temperature 97.8. HEENT examination unremarkable. Conjunctivae pink. Sclerae anicteric. Oral cavity no lesions. NECK: No JVD or lymph node enlargement. CHEST: Clear to auscultation. HEART: Regular rate and rhythm. ABDOMEN: Soft. Bowel sounds are positive. No organomegaly. EXTREMITIES: No pedal edema. SKIN: No rashes. NEURO: He is alert and oriented x3. No focal deficits. LABS: Done at the time of admission to the hospital: WBC 6.3, hemoglobin 6.8, platelets 221. ALT, AST, T-bilirubin, alkaline phosphatase are normal. Basic metabolic panel is within normal limits. BUN 35, creatinine 0.86. IMPRESSION: 1. Severe symptomatic anemia with a hemoglobin of 6.8, requiring 2 units of blood transfusion. The patient has been having intermittent dark colored stools for the last several months duration. The patient has been taking iron supplements and that is what and since then has been having dark colored stools. He denies any melena or rectal bleeding. The last EGD/ colonoscopy intervention was more than 7- 10 years ago. Has been taking Aleve lately for chronic back pain. Most likely we are dealing with an upper gastrointestinal blood loss. Clinically no evidence of active bleeding. 2. History of coronary artery disease, on aspirin and Plavix, currently on hold for the last [address] Zavala following the patient closely. RECOMMENDATIONS: In regards to the anemia, we will proceed with further investigations. He will be scheduled for an EGD and colonoscopy tomorrow. I discussed with the patient risks, benefits and complications of the procedure. He is agreeable to it. Thank you for this consultation. MMBRADYL / RONITN: [id number] /
[2019-04-11 19:21] LABS: HCT 23.3 % (39.0-53.0); Hypochromasia Slight; MCH 29.3 pg (25.0-35.0); MCHC 34.3 g/dL (31.0-37.0); MCV 85.4 fL (80.0-100.0); Mean Platelet Volume 6.8; Platelet Count 240 k/uL (150-450); Poikilocytosis Moderate; RBC 2.72 m/uL (4.30-5.90); RDW 14.5 % (11.5-15.5); WBC 6.6 k/uL (3.8-10.6)
[2019-04-11] MEDS: ATORVASTATIN 40 MG TAB PO SCH (19:46)
[2019-04-11 19:51] LABS: Anisocytosis (M) Present; Lymphocytes # (M) 0.79 k/uL (1.0-4.8); Neutrophils % (M) 79 %; Nucleated Red Blood Cells 0 /100 WBC (0-0); Total Cells Counted 100
[2019-04-11] MEDS: DICLOFENAC SODIUM GEL 100 GM TUBE TOPICAL SCH (22:41)
[2019-04-12] MEDS: HYDROcodone/APAP 5-325MG 1 EACH TAB PO PRN ×4 (02:31→15:02)
[2019-04-12] MEDS: DICLOFENAC SODIUM GEL 100 GM TUBE TOPICAL SCH ×2 (04:03→13:41)
[2019-04-12] MEDS: PANTOPRAZOLE 40 MG/10 ML VIAL IVP SCH (08:55)
[2019-04-12] MEDS: ASCORBIC ACID 500 MG TAB PO SCH (08:56)
[2019-04-12] MEDS: amLODIPine 2.5 MG TAB PO SCH (08:56)
[2019-04-12 09:13] VITALS: RESP 18
[2019-04-12] MEDS: SODIUM CHLORIDE 0.9% 1,000 ML IV SCH (11:11)
[2019-04-12 12:30] VITALS: BP 144/78; PULSE 69; TEMP 98.1
[2019-04-12] MEDS ORDERED: IV FLUID CONTINUATION 500 ML IV ONE (12:30)
[2019-04-12] MEDS ORDERED: PROPOFOL 10 MG/ML 20 ML VIAL IV ONE (12:35)
[2019-04-12] MEDS ORDERED: LIDOCAINE 1% INJ 10MG/ML (20 ML MDV) ONE (12:35)
--- NOTE | 2019-04-12 13:06 | P.PCN ---
Date of Procedure: 04/12/19 Procedure(s) Performed: Brief history: Patient is a pleasant white male admitted to the hospital with severe symptomatic anemia and hemoglobin of 6.8 g/dL requiring 2 units of blood transfusion. He was having some darker stools for the last several months as he has been taking iron supplements daily. Because of the severe anemia he has scheduled for an upper endoscopy as well as colonoscopy . Procedure performed: Esophagogastroduodenoscopy with biopsy Colonoscopy Preoperative diagnosis: Darker stools and severe symptomatic anemia Anesthesia: MAC Procedure: After informed consent was obtained from the patient was brought into the endoscopy unit and IV sedation was administered by anesthesia under continuous monitoring. Initially upper endoscopy was done. The Olympus GF 160 video endoscope was inserted inserted into the mouth and esophagus intubated without any difficulty and was gradually advanced into the stomach and duodenum and carefully examined. The bulb and second part of the duodenum appeared normal. The scope was then withdrawn into the stomach adequately insufflated with air and upon careful examination the antrum had a 2 cm clean-based ulcer in the prepyloric area which was biopsied. There was no active bleeding. The body, cardia and fundus appeared normal. The scope was then withdrawn into the esophagus. The GE junction was located at 40 cm to the incisors. It appeared regular with no erythema erosions or ulcerations. Rest of the esophagus appeared normal. Patient tolerated the procedure well. At this time the patient continued to remain sedation. Initial digital rectal examination was normal. Olympus CF 160 video colonoscope was then inserted into the rectum and gradually advanced to the cecum without any difficulty. Careful examination was performed as the scope was gradually being withdrawn. The prep was poor and several areas of the colon. Thorough irrigation was performed.. The cecum, ascending colon, transverse colon, descending colon, sigmoid colon and rectum appeared normal. Moderate left-sided diverticulosis. Retroflexion was performed in the rectum and no lesions were noted. Patient tolerated the procedure well. Impression: 1. Upper endoscopy revealed a 2 cm clean-based antral ulcer with no active bleeding 2. Colonoscopy revealed scattered scattered diffuse diverticulosis Recommendations: Findings of this examination were discussed with the patient as well as his family. He was advised to continue with Protonix 40 mg daily and avoid NSAIDs. In the meantime will await the biopsy results. Aspirin and Plavix can be resumed in a week.
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
[2019-04-12 15:53] VITALS: BMI 28.7
== END 2019-04-12 16:11 | disposition home or self-care (01) | DRG 378 ==
LOC: EC 07:31 → 3SCARD 09:31
PROVIDERS: ADMIT Internal Medicine; ATTEND Internal Medicine
PROC: 30233N1 Transfusion of Nonautologous Red Blood Cells into Peripheral Vein, Percutaneous Approach (ICD-10-PCS; principal; 2019-04-10)
PROC: 0DB78ZX Excision of Stomach, Pylorus, Via Natural or Artificial Opening Endoscopic, Diagnostic (ICD-10-PCS; 2019-04-12)
PROC: 0DJD8ZZ Inspection of Lower Intestinal Tract, Via Natural or Artificial Opening Endoscopic (ICD-10-PCS; 2019-04-12 08:05)
DX: K25.4 Chronic or unspecified gastric ulcer with hemorrhage (principal); D62 Acute posthemorrhagic anemia; I08.1 Rheumatic disorders of both mitral and tricuspid valves; K57.30 Diverticulosis of large intestine without perforation or abscess without bleeding; J43.9 Emphysema, unspecified; G47.30 Sleep apnea, unspecified; E78.5 Hyperlipidemia, unspecified; I10 Essential (primary) hypertension; I25.10 Atherosclerotic heart disease of native coronary artery without angina pectoris; G43.909 Migraine, unspecified, not intractable, without status migrainosus; K44.9 Diaphragmatic hernia without obstruction or gangrene; K40.90 Unilateral inguinal hernia, without obstruction or gangrene, not specified as recurrent; K21.9 Gastro-esophageal reflux disease without esophagitis; F41.9 Anxiety disorder, unspecified; M19.90 Unspecified osteoarthritis, unspecified site; G89.29 Other chronic pain; M54.9 Dorsalgia, unspecified; K59.00 Constipation, unspecified; R19.7 Diarrhea, unspecified; Z79.02 Long term (current) use of antithrombotics/antiplatelets; Z79.82 Long term (current) use of aspirin; Z79.891 Long term (current) use of opiate analgesic; Z79.899 Other long term (current) drug therapy; Z86.19 Personal history of other infectious and parasitic diseases; Z87.891 Personal history of nicotine dependence; Z95.5 Presence of coronary angioplasty implant and graft; Z87.81 Personal history of (healed) traumatic fracture; Z89.021 Acquired absence of right finger(s); Z98.890 Other specified postprocedural states; Z99.89 Dependence on other enabling machines and devices; Z88.4 Allergy status to anesthetic agent; Z91.040 Latex allergy status; Z80.1 Family history of malignant neoplasm of trachea, bronchus and lung; Z83.6 Family history of other diseases of the respiratory system
CPT/HCPCS: 36415; 43239; 45378; 70450; 71046; 71275; 80048; 80053; 82728; 83540; 83550; 83735; 83880; 84484; 85025; 85379; 85610; 85730; 86850; 86900; 86901; 86920; 88305; 93005; 93306; 94760; 96374; 96375; 99285

== ENCOUNTER → 2019-04-26 | Outpatient (CLI) | payer MEDICARE, OTHER ==
[2019-04-26 14:39] LABS: HCT 28.4 % (39.0-53.0); HGB 8.9 gm/dL (13.0-17.5); Hypochromasia Marked; MCH 27.8 pg (25.0-35.0); MCHC 31.2 g/dL (31.0-37.0); MCV 89.1 fL (80.0-100.0); Mean Platelet Volume 6.5; Platelet Count 331 k/uL (150-450); Poikilocytosis Moderate; RBC 3.19 m/uL (4.30-5.90); RDW 13.8 % (11.5-15.5); WBC 5.9 k/uL (3.8-10.6)
[2019-04-26 19:25] LABS: African American GFR (CKD) 97.8 (60.0-200.0); BUN/Creat Ratio 23.75 Ratio (12.00-20.00); Calcium 9.2 mg/dL (8.7-10.3); Potassium 4.4 mmol/L (3.5-5.5)
== END ==
LOC: LABWHC1 13:46
PROVIDERS: ATTEND Internal Medicine Interventional Cardiology
DX: I25.10 Atherosclerotic heart disease of native coronary artery without angina pectoris (principal); D64.9 Anemia, unspecified
CPT/HCPCS: 36415; 80048; 85027

== ENCOUNTER → 2019-05-27 | Outpatient (CLI) | payer MEDICARE, OTHER ==
[2019-05-27 15:24] LABS: HCT 35.2 % (39.0-53.0); Hypochromasia Marked; MCH 27.3 pg (25.0-35.0); MCHC 31.2 g/dL (31.0-37.0); MCV 87.5 fL (80.0-100.0); Mean Platelet Volume 6.6; Platelet Count 264 k/uL (150-450); RBC 4.02 m/uL (4.30-5.90); RDW 14.1 % (11.5-15.5); WBC 5.9 k/uL (3.8-10.6)
[2019-05-27 20:09] LABS: Magnesium 1.8 mg/dL (1.5-2.4)
[2019-05-27 20:10] LABS: Anion Gap 8.1 mmol/L (4.00-12.00); Calcium 8.9 mg/dL (8.7-10.3); Carbon Dioxide 24.9 mmol/L (21.6-31.8); Potassium 4.4 mmol/L (3.5-5.5)
== END | disposition home or self-care (01) ==
LOC: LABWHC1 13:24
PROVIDERS: ATTEND Nurse Practitioner
DX: D64.9 Anemia, unspecified (principal)
CPT/HCPCS: 36415; 80048; 83735; 85027

== ENCOUNTER → 2020-08-28 | Outpatient (CLI) | payer MEDICARE, OTHER ==
--- NOTE | 2020-08-28 09:54 | CT ---
EXAMINATION TYPE: CT sinus wo con DATE OF EXAM: 08/28/2020 COMPARISON: None HISTORY: Chronic sinusitis CT DLP: 618.40 mGycm CONTRAST: 0 mL of Isovue 300 The paranasal sinuses are examined in the axial plane at 2 mm thick sections. Reconstructed images i n the coronal plane were obtained. There is dental amalgam scatter artifact Left maxillary sinus is opacified. Right maxillary sinus is patent. Mucosal thickening is through an terior mid and some posterior ethmoid air cells The sphenoid sinuses are clear. Air-fluid level and some mucosal thickening is within the left frontal sinus. The septum is evaluated. There is some anterior septal deviation. The right ostiomeatal unit is pat ent. The left ostiomeatal unit is obstructed. IMPRESSIONS: 1. Correlate for left frontal sinusitis. 2. Mucosal thickening opacifying the ethmoid air cells on the left and the left maxillary sinus. Left ostiomeatal unit is obstructed.
== END | disposition home or self-care (01) ==
LOC: RADCTMAIN 06:57
PROVIDERS: ATTEND Otolaryngology
DX: J34.89 Other specified disorders of nose and nasal sinuses (principal)
CPT/HCPCS: 70486

== ENCOUNTER 2020-10-26 08:24 | Day surgery (SDC) | payer MEDICARE, OTHER ==
[2020-10-23 09:46] VITALS: BMI 28.1
[~2020-10-26 08:24] MED LIST changes: -ALPRAZolam 0.25 MG TAB PO PRN; -ALPRAZolam 0.5 MG TAB PO PRN; -ASPIRIN 325 MG TAB PO STA; -ATORVASTATIN 80 MG TAB PO STA; +DEXAMETHASONE SOD PHOSPHATE 4 MG/ML 1 ML VIAL IV ONE; +DEXAMETHASONE SOD PHOSPHATE 4 MG/ML 1 ML VIAL IV PRN; +FAMOTIDINE 20 MG/2 ML VIAL IV PRN; +HYDROmorphone 0.5 MG/0.5 ML SYRINGE IVP PRN; +LIDOCAINE 1% (10MG/ML) FOR IV START INTRADERMA PRN; -NITROGLYCERIN SL TABS 0.4 MG TAB SUBLINGUAL PRN; +ONDANSETRON 4 MG/2 ML VIAL IVP ONE; +ONDANSETRON 4 MG/2 ML VIAL IVP PRN; +OXYMETAZOLINE 0.05% NASL SPRAY 1 SPRAY BOTTLE EA NOSTRIL PRN; -SODIUM CHLORIDE 0.9% 1,000 ML in EMPTY BAG 1 BAG IV ONE
[2020-10-26] MEDS: LACTATED RINGERS 1,000 ML IV SCH ×2 (09:27→12:37)
[2020-10-26] MEDS ORDERED: fentaNYL (PF) 50 MCG/ML 2 ML AMP ONE (10:18)
[2020-10-26] MEDS ORDERED: GLYCOPYRROLATE 0.2 MG/ML 2 ML VIAL ONE (10:18)
[2020-10-26] MEDS ORDERED: SUCCINYLCHOLINE CHLORIDE VIAL 200 MG/10 ML VIAL IV ONE (10:18)
[2020-10-26] MEDS ORDERED: LIDOCAINE 1% INJ 10MG/ML (20 ML MDV) ONE (10:18)
[2020-10-26] MEDS ORDERED: PROPOFOL 10 MG/ML 20 ML VIAL IV ONE (10:18)
[2020-10-26] MEDS ORDERED: LIDOCAINE 1%-EPI 1:100,000 20 ML VIAL SQ ONE ×2 (10:47)
[2020-10-26] MEDS ORDERED: FLUORESCEIN STRIPS 1 MG STRIP MISCELLANE ONE (10:53)
[2020-10-26] MEDS ORDERED: EPINEPHrine 1 MG/ML (MDV) 30 ML VIAL TOPICAL ONE (10:53)
[2020-10-26 11:48] VITALS: TEMP 97
[2020-10-26 12:02] VITALS: RESP 16
--- NOTE | 2020-10-26 12:12 | P.OP ---
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 He has failed medical therapy and wished to proceed forward with sinus surgery and irrigation of the left nasal lacrimal duct. All risks, benefits, and alternative therapies were discussed. Consent was obtained and all questions were answered. Operative Findings: Left sided chronic pansinusitis with sinonasal polyposis and a left nasal lacrimal duct stenosis Description of Procedure: Patient was taken to the operative room and placed in the supine position. A general inhalation anesthetic was administered to the patient by mask and subsequently intubated with a cuffed endotracheal tube by the department of anesthesia with a functioning IV line in place. The patient was monitored throughout the entire case by the department of anesthesia. With use of a 0 Blackwood earl endoscope we anesthetized the sphenopalatine ganglion the lateral nasal wall. With use of a 0 Blackwood earl scope we entered the nose on the left side and opened up the maxillary sinus with the microdebrider taking down the uncinate process and making nice opening into the left maxillary sinus and entered the maxillary sinus and removed diseased tissue from the left maxillary sinus. Yovany pus was identified. Attention was then paid to the ethmoid sinuses where we took down all ethmoid septations and followed the fovea frontalis through the basal lamella into the posterior ethmoid air cells all diseased tissue polypoid tissue and disease purulent material was removed. We then entered the sphenoid sinus on the left side and opened up the left sphenoid sinus we entered the sphenoid sinus with use of a 0 Blackwood earl scope and removed diseased tissue and purulence. We then opened the nasal frontal duct with the microdebrider and up-biting Blakesley the frontal sinus was opened on the left side and diseased tissue was removed and purulence was suctioned. The frontal sinus on the left side was explored. The middle turbinate was sutured to the septum and reinserted xerogel underneath the middle turbinate on the left side. Again all polyps were removed intranasally and from the sinuses the left- sided sinuses were open including the frontal total ethmoid sphenoid and maxillary sinus. Attention was then paid to the left nasal lacrimal duct. We dilated the punctum and inserted a 24-gauge Angiocath and irrigated the nasal lacrimal duct on the left side with saline. Clear flow was identified through the patient tolerated this well and follow-up will be in the office in 1 week.
[2020-10-26 13:13] VITALS: BP 150/82; PULSE 64
== END 2020-10-26 13:26 | disposition home or self-care (01) ==
LOC: OR 08:24
PROVIDERS: ATTEND Otolaryngology
DX: J32.4 Chronic pansinusitis (principal); J01.90 Acute sinusitis, unspecified; J33.8 Other polyp of sinus; K21.9 Gastro-esophageal reflux disease without esophagitis; F41.9 Anxiety disorder, unspecified; M19.90 Unspecified osteoarthritis, unspecified site; I10 Essential (primary) hypertension; G43.909 Migraine, unspecified, not intractable, without status migrainosus; G47.33 Obstructive sleep apnea (adult) (pediatric); I25.10 Atherosclerotic heart disease of native coronary artery without angina pectoris; Z87.891 Personal history of nicotine dependence; Z91.09 Other allergy status, other than to drugs and biological substances; Z90.89 Acquired absence of other organs; Z98.890 Other specified postprocedural states; Z95.5 Presence of coronary angioplasty implant and graft; Z80.3 Family history of malignant neoplasm of breast; Z80.1 Family history of malignant neoplasm of trachea, bronchus and lung; Z79.82 Long term (current) use of aspirin; Z79.891 Long term (current) use of opiate analgesic; Z79.899 Other long term (current) drug therapy; Z88.8 Allergy status to other drugs, medicaments and biological substances; Z91.040 Latex allergy status
CPT/HCPCS: 88305; 31267; 31259; J0171; J0330; J1100; J2405; J2001; J3010; J2704; J1170

== ENCOUNTER 2022-04-22 07:09 | Emergency (ER) | payer MEDICARE, OTHER ==
[2022-04-22 07:16] VITALS: TEMP 98.1
[2022-04-22] MEDS ORDERED: SODIUM CHLORIDE 0.9% 500 ML 500 ML IV ONE (07:28)
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
[2022-04-22 07:51] LABS: HCT 39.2 % (39.0-53.0); HGB 13.4 gm/dL (13.0-17.5); MCH 30.5 pg (25.0-35.0); MCHC 34.3 g/dL (31.0-37.0); MCV 88.9 fL (80.0-100.0); Mean Platelet Volume 8.3; Platelet Count 195 k/uL (150-450); RBC 4.41 m/uL (4.30-5.90); RDW 12.9 % (11.5-15.5); WBC 6.2 k/uL (3.8-10.6)
[2022-04-22 08:09] LABS: ALT 19 U/L (4-49); AST 22 U/L (17-59); African American GFR (CKD) >90 (>60 ml/min/1.73 sqM); Albumin 3.7 g/dL (3.5-5.0); Alkaline Phosphatase 53 U/L (38-126); Anion Gap 7 mmol/L; Blood Urea Nitrogen 20 mg/dL (9-20); Calcium 9.1 mg/dL (8.4-10.2); Carbon Dioxide 25 mmol/L (22-30); Chloride 105 mmol/L (98-107); Glucose 100 mg/dL (74-99); Non-African American GFR(CKD) 85 (>60 ml/min/1.73 sqM); Potassium 3.7 mmol/L (3.5-5.1); Sodium 137 mmol/L (137-145); Total Bilirubin 0.5 mg/dL (0.2-1.3); Total Protein 5.6 g/dL (6.3-8.2)
[2022-04-22 08:17] LABS: Appearance,Urine Clear (Clear); Bilirubin,Urine Negative (Negative); Blood,Urine Negative (Negative); Color,Urine Yellow; Glucose,Urine (UA) Negative (Negative); Ketones,Urine Negative (Negative); Leukocyte Esterase,Urine Negative (Negative); Nitrite,Urine Negative (Negative); PH, Urine 5.5 (5.0-8.0); Protein,Urine Negative (Negative); Specific Gravity,Urine 1.019 (1.001-1.035); Urobilinogen,Urine <2.0 mg/dL (<2.0)
[2022-04-22 08:38] LABS: Eosinophils # (M) 0.25 k/uL (0-0.7); Lymphocytes # (M) 0.68 k/uL (1.0-4.8); Monocytes # (M) 0.81 k/uL (0-1.0); Neutrophils # (M) 4.46 k/uL (1.3-7.7); Neutrophils % (M) 72 %; Nucleated Red Blood Cells 0 /100 WBC (0-0); Total Cells Counted 100
[2022-04-22 08:39] LABS: RBC Morphology Normal
[2022-04-22 09:01] VITALS: BP 168/93; PULSE 87; RESP 18
== END 2022-04-22 08:47 | disposition home or self-care (01) ==
LOC: EC 07:09
DX: I10 Essential (primary) hypertension (principal); E78.5 Hyperlipidemia, unspecified; Z87.891 Personal history of nicotine dependence; Z91.040 Latex allergy status; Z88.8 Allergy status to other drugs, medicaments and biological substances
CPT/HCPCS: 36415; 80053; 81003; 83735; 85025; 93005; 96360; 99284

== ENCOUNTER 2023-07-29 05:17 | Inpatient (IN) | payer MEDICARE, OTHER ==
[2023-07-29 05:47] LABS: Appearance,Urine Clear (Clear); Basophils # (A) 0.1 k/uL (0-0.2); Basophils % (A) 0 %; Bilirubin,Urine Negative (Negative); Blood,Urine Negative (Negative); Color,Urine Light Yellow; Eosinophils # (A) 0.1 k/uL (0-0.7); Eosinophils % (A) 1 %; Glucose,Urine (UA) Negative (Negative); HCT 44.1 % (39.0-53.0); HGB 14.9 gm/dL (13.0-17.5); Ketones,Urine 1+ (Negative); Leukocyte Esterase,Urine Negative (Negative); Lymphocytes # (A) 0.5 k/uL (1.0-4.8); Lymphocytes % (A) 5 %; MCH 30.7 pg (25.0-35.0); MCHC 33.7 g/dL (31.0-37.0); MCV 90.8 fL (80.0-100.0); Mean Platelet Volume 8.5; Monocytes # (A) 0.5 k/uL (0-1.0); Monocytes % (A) 4 %; Neutrophils # (A) 10.2 k/uL (1.3-7.7); Neutrophils % (A) 87 %; Nitrite,Urine Negative (Negative); PH, Urine 6.5 (5.0-8.0); Platelet Count 228 k/uL (150-450); Protein,Urine Trace (Negative); RBC 4.86 m/uL (4.30-5.90); RDW 12.6 % (11.5-15.5); Urobilinogen,Urine <2.0 mg/dL (<2.0); WBC 11.7 k/uL (3.8-10.6)
[2023-07-29 05:59] LABS: ALT 22 U/L (4-49); AST 29 U/L (17-59); African American GFR (CKD) >90 (>60 ml/min/1.73 sqM); Albumin 4.6 g/dL (3.5-5.0); Alkaline Phosphatase 71 U/L (38-126); Amylase 71 U/L (30-110); Anion Gap 6 mmol/L; Blood Urea Nitrogen 25 mg/dL (9-20); Calcium 9.6 mg/dL (8.4-10.2); Carbon Dioxide 27 mmol/L (22-30); Chloride 105 mmol/L (98-107); Glucose 147 mg/dL (74-99); Lipase 48 U/L (23-300); Non-African American GFR(CKD) 80 (>60 ml/min/1.73 sqM); Potassium 4.1 mmol/L (3.5-5.1); Sodium 138 mmol/L (137-145); Total Bilirubin 0.7 mg/dL (0.2-1.3); Total Protein 7.1 g/dL (6.3-8.2)
--- NOTE | 2023-07-29 06:06 | XR ---
EXAMINATION TYPE: XR KUB DATE OF EXAM: 07/29/2023 5:59 AM CLINICAL HISTORY: Abdominal pain TECHNIQUE: Single KUB image of the abdomen is obtained. COMPARISON: Abdominal x-ray October 06, 2015. FINDINGS: Scattered gas is seen in non-distended small bowel loops. Slightly more prominent gas fille d small bowel loop right upper quadrant is seen. Gas and fecal material is seen in non-distended colo n. There is levoconvex scoliosis centered in the upper to mid lumbar spine redemonstrated. Lung bases are clear. Moderate narrowing of both hip joints is present. Left-sided renal calculi are suspected measuring up to 10 mm in size IMPRESSION: Overall nonspecific but strongly favor nonobstructive bowel gas pattern.
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
--- NOTE | 2023-07-29 07:43 | CT ---
EXAMINATION TYPE: CT abdomen pelvis w con DATE OF EXAM: 07/29/2023 COMPARISON: Prior CT abdomen 2016 HISTORY: abd pain acute nonlocalized CT DLP: 967.8 mGycm, Automated Exposure Control for Dose Reduction was Utilized. CONTRAST: CT scan of the abdomen and pelvis is performed with oral and with IV Contrast, patient injected with 100 mL of Isovue 300. FINDINGS: LUNG BASES: No significant abnormality is appreciated. LIVER/GB: There are simple appearing thin-walled cysts scattered throughout the liver. PANCREAS: No significant abnormality is seen. SPLEEN: No significant abnormality is seen. ADRENALS: No significant abnormality is seen. KIDNEYS: There is nonobstructing calculus mid pole level left kidney measuring 8 mm coronal image 69. BOWEL: Debris distended stomach prominent and dilated proximal to mid small bowel loops throughout th e abdomen. Fecal material seen in nondistended colon. Small bowel loops dilated to 4.2 cm coronal alber ge 44. Transition point felt in the right pelvis. No free air or mesenteric air. Fourth portion of du odenum does not ascend to the level of the gastric antrum, underlying malrotation based to be conside red. SMA/SMV relationship is preserved. PROSTATE/SEMINAL VESICLES: No gross abnormality seen. LYMPH NODES: No greater than 1cm abdominal or pelvic lymph nodes are appreciated. OSSEOUS STRUCTURES: Hiiweutz-pc-ourkzf disc space narrowing with vacuum disc phenomenon at L5-S1 leve l. Similar findings at L2-L3 level. OTHER: Mild/moderate calcified plaque of the aorta extends into branch vessels. IMPRESSION: CT findings consistent with developing mid to distal small bowel obstruction. Consider na sogastric tube decompression and advise surgical evaluation.
[2023-07-29] MEDS ORDERED: SODIUM CHLORIDE 0.9% 1,000 ML IV STA (07:47)
[2023-07-29] MEDS ORDERED: MORPHINE SULFATE 2 MG/ML SYRINGE IVP STA (07:47)
[2023-07-29] MEDS ORDERED: KETOROLAC 15 MG/ML 1 ML VIAL IVP STA (07:47)
[2023-07-29] MEDS ORDERED: KETOROLAC 15 MG/ML 1 ML VIAL IVP PRN (08:09)
[2023-07-29] MEDS ORDERED: NALOXONE 0.4 MG/ML 1 ML VIAL IV PRN (08:09)
[2023-07-29] MEDS ORDERED: ONDANSETRON 4 MG/2 ML VIAL IVP PRN (08:09)
[2023-07-29] MEDS ORDERED: MORPHINE SULFATE 4 MG/ML SYRINGE IVP PRN (08:11)
[2023-07-29] MEDS ORDERED: MORPHINE SULFATE 2 MG/ML SYRINGE IVP PRN ×3 (08:11→08:51)
[2023-07-29] MEDS ORDERED: ACETAMINOPHEN IV (For NPO) 1,000 MG in EMPTY BAG 1 BAG IVPB PRN (08:11)
[2023-07-29] MEDS ORDERED: PROCHLORPERAZINE SUPPOSITORY 25 MG SUPP RECTAL PRN (08:49)
[2023-07-29] MEDS ORDERED: hydrALAZINE HCL 20 MG/ML 1 ML VIAL IVP PRN (09:04)
[2023-07-29] MEDS: PANTOPRAZOLE 40 MG/10 ML VIAL IV SCH (09:08)
[2023-07-29] MEDS: SODIUM CHLORIDE 0.9% 1,000 ML IV SCH ×2 (10:13→21:34)
[2023-07-29] MEDS ORDERED: NITROGLYCERIN SL TABS 0.4 MG TAB SUBLINGUAL PRN (10:35)
[2023-07-29] MEDS ORDERED: MAG HYDROX/AL HYDROX/SIMETH 30 ML CUP PO PRN (10:35)
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
[2023-07-29] MEDS: HYDROcodone/APAP 5-325MG 1 EACH TAB PO SCH ×3 (13:42→21:33)
--- NOTE | 2023-07-29 15:59 | XR ---
EXAMINATION TYPE: XR chest 1V portable DATE OF EXAM: 07/29/2023 Comparison: 04/22/2022 Clinical History: 83-year-old male NG tube placement verification Findings: NG tube is short. The tip is at the GE junction. Side hole above the GE junction. Advancement by 10 c m so that the sidehole into the stomach. Heart upper limits of normal in size. Multiple old left-sided rib fracture 4 minutes. No consolidatio n or pleural effusion. Impression: 1. Advance the NG tube by 10 cm so that the sidehole enters the stomach. 2. Borderline heart size. No definite acute process otherwise seen.
--- NOTE | 2023-07-29 17:04 | XR ---
EXAMINATION TYPE: XR chest 1V portable DATE OF EXAM: 07/29/2023 Comparison: 07/29/2023 Clinical History: 83-year-old male NG placement Findings: There is been satisfactory interval advancement of the NG tube. Heart normal size. Old left-sided rib fracture deformities. No consolidation or pleural effusion. Impression: Satisfactory advancement of the NG tube. No acute process seen.
--- NOTE | 2023-07-29 19:49 | XR ---
EXAMINATION TYPE: XR chest 1V DATE OF EXAM: 07/29/2023 COMPARISON: 07/29/2023 HISTORY: NG tube placement TECHNIQUE: Single frontal view of the chest is obtained. FINDINGS: There is an NG tube within the stomach. There is a small amount of free air beneath the right hemidiaphragm. There is no pneumothorax or pleural effusion. Lungs are clear. Heart and pulmonary vasculature are no rmal. The osseous structures are intact. IMPRESSION: 1. NG tube within stomach. 2. Small amount of free air beneath the right hemidiaphragm is suspected. Clinical correlation recomm ended.
[2023-07-29] MEDS: MAGNESIUM OXIDE 400 MG TAB PO SCH (21:20)
[2023-07-29] MEDS: ATORVASTATIN 40 MG TAB PO SCH (21:20)
[2023-07-29] MEDS: BACLOFEN 10 MG TAB PO SCH (21:22)
[2023-07-29] MEDS: traMADol 50 MG TAB PO SCH (21:22)
--- NOTE | 2023-07-29 21:44 | XR ---
EXAMINATION TYPE: XR chest 1V portable DATE OF EXAM: 07/29/2023 COMPARISON: 01/27/2024 at 7:20 PM HISTORY: NG tube placement TECHNIQUE: Single frontal view of the chest is obtained. FINDINGS: The NG tube has been partially withdrawn the tip is now within the mid esophagus. The lungs are clear . There is no pleural effusion. Heart and pulmonary vasculature are normal. The osseous structures ar e intact. There are remote healed left rib fractures. The air beneath the right hemidiaphragm possibly represents colonic interposition and is unchanged co mpared to previous. IMPRESSION: NG tube partially withdrawn compared to previous. The tip is now in the mid esophagus.
--- NOTE | 2023-07-30 01:16 | XR ---
EXAM: XR Chest, 1 View CLINICAL HISTORY: ITS.REASON XR Reason: NG Tube placement TECHNIQUE: Frontal view of the chest. COMPARISON: Chest radiograph on 07/29/2023 FINDINGS: Hardware: Enteric tube terminates in the region of the lower thoracic esophagus. Lungs/pleura: Mild lower lung opacities likely represent atelectasis. No focal consolidation. No pleural effusion or pneumothorax. Heart/mediastinum: Normal. No cardiomegaly. Soft tissues: Unremarkable. Bones: No acute fracture. Old left-sided rib fracture deformities. Upper abdomen: Normal. IMPRESSION: Enteric tube terminates in the region of the lower thoracic esophagus and should be advanced.
[2023-07-30] MEDS: traMADol 50 MG TAB PO SCH ×2 (06:53→21:27)
--- NOTE | 2023-07-30 07:52 | XR ---
EXAM: XR Chest, 1 View CLINICAL HISTORY: ITS.REASON XR Reason: NG placement TECHNIQUE: Frontal view of the chest. COMPARISON: No relevant prior studies available. IMPRESSION: NG tube side-port is in the distal esophagus. Recommend advancing 8-10 cm. MTDD
[2023-07-30] MEDS: FUROSEMIDE 20 MG TAB PO SCH (08:09)
[2023-07-30] MEDS: ASPIRIN 81 MG PO SCH (08:09)
[2023-07-30] MEDS: amLODIPine 5 MG TAB PO SCH (08:09)
[2023-07-30] MEDS: ASCORBIC ACID 500 MG TAB PO SCH (08:09)
[2023-07-30] MEDS: HYDROcodone/APAP 5-325MG 1 EACH TAB PO SCH ×3 (08:09→17:09)
[2023-07-30] MEDS: FAMOTIDINE 20 MG TAB PO SCH (08:09)
[2023-07-30] MEDS: METOPROLOL TARTRATE 12.5 MG TAB PO SCH (08:09)
[2023-07-30] MEDS: ENOXAPARIN 40 MG/0.4 ML SYRINGE SQ SCH (08:10)
[2023-07-30] MEDS: FERROUS SULFATE 325 MG TAB PO SCH (08:10)
[2023-07-30] MEDS: PANTOPRAZOLE 40 MG/10 ML VIAL IV SCH (08:10)
[2023-07-30] MEDS: LACTOBACILLUS ACIDOPHILUS/PECT 1 EACH CAPSULE PO SCH (08:14)
[2023-07-30] MEDS ORDERED: NON FORMULARY DRUG (Glucosam/Chon-Msm1/C/Mang/Bosw [Glucosamine-Chondroitin Tablet] 1 EACH PO SCH (09:00)
[2023-07-30 09:03] LABS: African American GFR (CKD) >90 (>60 ml/min/1.73 sqM); Anion Gap 4 mmol/L; Blood Urea Nitrogen 18 mg/dL (9-20); Calcium 8.9 mg/dL (8.4-10.2); Carbon Dioxide 27 mmol/L (22-30); Chloride 109 mmol/L (98-107); Glucose 98 mg/dL (74-99); Magnesium 2.5 mg/dL (1.6-2.3); Non-African American GFR(CKD) 82 (>60 ml/min/1.73 sqM); Phosphorus 3.3 mg/dL (2.5-4.5); Potassium 4.1 mmol/L (3.5-5.1); Sodium 140 mmol/L (137-145)
--- NOTE | 2023-07-30 11:56 | P.PN ---
Subjective Progress Note Date: 07/30/23 * 83-year-old gentleman with past medical history significant for coronary artery disease history of PCI in LAD, hyperlipidemia, history of antral ulcer, and gastrointestinal bleed, sleep apnea, gastroesophageal reflux disease presents to the emergency bun with complains of new onset abdominal pain that started a day prior to presentation. Patient states he had complained of mid to upper abdomen discomfort this was associated with nausea and episode of recurrent vomiting. Patient did mention he had an episode of loose stool and took Imodium after that he started feeling constipated and did not pass gas. Patient denies associated fever, chills, hematemesis. * Workup in ER included CBC which were WBC of 11.7 hemoglobin 14.9 platelet count of 228. Serum chemistry shows sodium 138 potassium 4.1 and carbon dioxide 20 7B and 25 creatinine 0.86 blood glucose 147 * Patient had a CT abdomen and pelvis completed in ED which showed distended stomach and dilated proximal to mid small bowel throughout the abdomen small bowel loops were dilated. CT findings were consistent with mid to distal small bowel obstruction * A nasogastric tube was placed and consultation ordered for surgery evaluation * 07/30/2023: Patient removed nasogastric tube overnight. Doesn't want another tube placed. At this time diet advanced by general surgery. Nausea vomiting abdominal pain has resolved REVIEW OF SYSTEMS: Nausea, vomiting, abdominal pain resolved CONSTITUTIONAL: No fever, no malaise, no fatigue. HEENT: No recent visual problems or hearing problems. Denied any sore throat. CARDIOVASCULAR: No chest pain, orthopnea, PND, no palpitations, no syncope. PULMONARY: No shortness of breath, no cough, no hemoptysis. GASTROINTESTINAL:Nausea, vomiting, abdominal pain NEUROLOGICAL: No headaches, no weakness, no numbness. HEMATOLOGICAL: Denies any bleeding or petechiae. GENITOURINARY: Denies any burning micturition, frequency, or urgency. MUSCULOSKELETAL/RHEUMATOLOGICAL: Denies any joint pain, swelling, or any muscle pain. ENDOCRINE: Denies any polyuria or polydipsia. The rest of the 14-point review of systems is negative. PHYSICAL EXAMINATION: GENERAL: The patient is alert and oriented x3, nasogastric tube removed HEENT: Pupils are round and equally reacting to light. EOMI Normocephalic, atraumatic. No pharyngeal erythema. No thyromegaly. CARDIOVASCULAR: S1 and S2 present. No murmurs, rubs, or gallops. PULMONARY: Chest is clear to auscultation, no wheezing or crackles. ABDOMEN: Soft, bowel sounds present nontender on palpation MUSCULOSKELETAL: No joint swelling or deformity. EXTREMITIES: No cyanosis, clubbing, or pedal edema. NEUROLOGICAL: Gross neurological examination did not reveal any focal deficits. SKIN: No rashes. Objective - Vital Signs Vital signs: Vital Signs Temp 98.1 F 07/30/23 08:00 Pulse 66 07/30/23 08:00 Resp 16 07/30/23 01:57 BP 162/64 07/30/23 08:00 Pulse Ox 96 07/30/23 08:00 FiO2 Intake & Output 07/29/23 07/30/23 07/30/23 18:59 06:59 18:59 Weight 77.111 kg Other: Voiding Method Toilet # Voids 1 - Labs CBC & Chem 7: 07/29/23 05:26 07/30/23 08:10 Labs: Abnormal Lab Results - Last 24 Hours (Table) 07/30/23 Range/Units 08:10 Chloride 109 H (98-107) mmol/L Magnesium 2.5 H (1.6-2.3) mg/dL Assessment and Plan Assessment: Assessment and plan * Small bowel obstruction * History of coronary artery disease * History of gastroesophageal reflux/antral ulcer * Hypertension * Dyslipidemia * In regards to small bowel obstruction, had nasogastric tube in place, patient removed doesn't want another one in, appreciate input from general surgery, advance diet to clears follow-up x-ray ordered * In regards to history of coronary artery disease, initial troponin obtained negative, serial troponins negative * In regards to history of hypertension, continue metoprolol * CODE STATUS is full code Time with Patient: Less than 30
[2023-07-30 13:13] LABS: HCT 40.9 % (39.0-53.0); HGB 13.7 gm/dL (13.0-17.5); MCH 31.2 pg (25.0-35.0); MCHC 33.4 g/dL (31.0-37.0); MCV 93.5 fL (80.0-100.0); Mean Platelet Volume 8.8; Platelet Count 178 k/uL (150-450); RBC 4.37 m/uL (4.30-5.90); RDW 12.7 % (11.5-15.5); WBC 8.1 k/uL (3.8-10.6)
--- NOTE | 2023-07-30 13:29 | P.PN ---
Subjective Progress Note Date: 07/30/23 CHIEF COMPLAINT: Abdominal Pain HISTORY OF PRESENT ILLNESS: Patient denies any abdominal pain. He has had 5 loose bowel movements since coming into the ER yesterday. He is having flatus. Denies any nausea or vomiting. There were having issues with NG tube yesterday. NG tube is currently out and patient feeling better. He would like to eat and go home today. Afebrile. Abdominal x-ray for today pending. Labs pending. Clear liquids ordered for lunch. PHYSICAL EXAM: VITAL SIGNS: Reviewed. GENERAL: Well-developed in no acute distress. ABDOMEN: Soft. Nondistended. Nontender. NEUROLOGIC: Alert and oriented. Cranial nerves II through XII grossly intact. ASSESSMENT: 1. Abdominal pain 2. Developing mid to distal small bowel obstruction noted on computed tomography scan PLAN: -Patient's symptoms improving -Advance diet to full liquids -Patient can be discharged from surgical standpoint if tolerating diet Physician Paperboard Machine Operator note has been reviewed by physician. Signing provider agrees with the documented findings, assessment, and plan of care. Objective - Vital Signs Vital signs: Vital Signs Temp 98.1 F 07/30/23 08:00 Pulse 66 07/30/23 08:00 Resp 16 07/30/23 01:57 BP 162/64 07/30/23 08:00 Pulse Ox 96 07/30/23 08:00 FiO2 Intake & Output 07/29/23 07/30/23 07/30/23 18:59 06:59 18:59 Weight 77.111 kg Other: Voiding Method Toilet # Voids 1 - Labs CBC & Chem 7: 07/30/23 12:33 07/30/23 08:10 Labs: Abnormal Lab Results - Last 24 Hours (Table) 07/30/23 Range/Units 08:10 Chloride 109 H (98-107) mmol/L Magnesium 2.5 H (1.6-2.3) mg/dL
--- NOTE | 2023-07-30 14:30 | XR ---
EXAMINATION TYPE: XR KUB portable DATE OF EXAM: 07/30/2023 1:51 PM CLINICAL INDICATION:Male, 83 years old with history of Follow-up bowel obstruction; COMPARISON: 07/29/2023. KUB 07/29/2023.. TECHNIQUE: One radiographic view of the abdomen was obtained. FINDINGS: The small bowel loops dilated up to 4.5 cm. Gaseous distention of some transverse colon. Le ft renal calculus remains present. Atherosclerotic vascular arterial vasculature. Multilevel degenera tion changes of the spine. Degeneration changes of the hips. IMPRESSION: Persistent dilated loops of small bowel measuring up to 4.5 cm.
[2023-07-30 14:43] LABS: Eosinophils # (M) 0.49 k/uL (0-0.7); Lymphocytes # (M) 0.49 k/uL (1.0-4.8); Monocytes # (M) 0.57 k/uL (0-1.0); Neutrophils # (M) 6.56 k/uL (1.3-7.7); Neutrophils % (M) 81 %; Nucleated Red Blood Cells 0 /100 WBC (0-0); RBC Morphology Normal; Total Cells Counted 100
[2023-07-30] MEDS: SODIUM CHLORIDE 0.9% 1,000 ML IV SCH (15:23)
[2023-07-30] MEDS: ATORVASTATIN 40 MG TAB PO SCH (21:27)
[2023-07-30] MEDS: BACLOFEN 10 MG TAB PO SCH (21:27)
[2023-07-30] MEDS: MAGNESIUM OXIDE 400 MG TAB PO SCH (21:28)
[2023-07-30 21:46] VITALS: RESP 17
[2023-07-31 02:08] VITALS: PULSE 57; TEMP 97.4
[2023-07-31] MEDS: SODIUM CHLORIDE 0.9% 1,000 ML IV SCH (02:38)
[2023-07-31] MEDS: FAMOTIDINE 20 MG TAB PO SCH (06:23)
--- NOTE | 2023-07-31 08:01 | XR ---
EXAMINATION TYPE: XR abdomen 2V DATE OF EXAM: 07/31/2023 CLINICAL HISTORY: SBO TECHNIQUE: Supine and upright views of the abdomen are obtained. COMPARISON: Abdominal x-ray one day earlier. CT abdomen pelvis 2 days earlier. FINDINGS: Scattered gas is seen in non-distended small and large bowel loops on current study. Prior focal gas dilated small bowel loop in the right abdomen now is not distinctly identified. Lung bases remain clear. There is levoconvex scoliosis centered at L3 level. Persistent 8 mm left renal calculu s. Vascular calcification overlies the pelvis. No free air is seen. IMPRESSION: Findings suggest improving or resolving small bowel obstruction. Correlate clinically.
[2023-07-31 08:05] VITALS: BP 149/81
[2023-07-31] MEDS: traMADol 50 MG TAB PO SCH (08:51)
[2023-07-31] MEDS: PANTOPRAZOLE 40 MG/10 ML VIAL IV SCH (08:52)
[2023-07-31] MEDS: HYDROcodone/APAP 5-325MG 1 EACH TAB PO SCH ×3 (09:58→13:54)
[2023-07-31] MEDS: amLODIPine 5 MG TAB PO SCH (09:58)
[2023-07-31] MEDS: ASCORBIC ACID 500 MG TAB PO SCH (09:58)
[2023-07-31] MEDS: FUROSEMIDE 20 MG TAB PO SCH (09:58)
[2023-07-31] MEDS: METOPROLOL TARTRATE 12.5 MG TAB PO SCH (09:58)
[2023-07-31] MEDS: LACTOBACILLUS ACIDOPHILUS/PECT 1 EACH CAPSULE PO SCH (09:58)
[2023-07-31] MEDS: FERROUS SULFATE 325 MG TAB PO SCH (09:58)
[2023-07-31] MEDS: ASPIRIN 81 MG PO SCH (09:58)
[2023-07-31] MEDS: ENOXAPARIN 40 MG/0.4 ML SYRINGE SQ SCH (09:59)
--- NOTE | 2023-07-31 10:13 | P.PN ---
Subjective Progress Note Date: 07/31/23 CHIEF COMPLAINT: Abdominal Pain HISTORY OF PRESENT ILLNESS: Patient denies abdominal pain. Denies any nausea or vomiting. Tolerating full liquids. Abdominal x-ray shows resolving small bowel obstruction. Afebrile. WBC 8.1 PHYSICAL EXAM: VITAL SIGNS: Reviewed. GENERAL: Well-developed in no acute distress. ABDOMEN: Soft. Nondistended. Nontender. NEUROLOGIC: Alert and oriented. Cranial nerves II through XII grossly intact. ASSESSMENT: 1. Abdominal pain 2. Small bowel obstruction improving 3. Takes daily pain meds PLAN: -Continue full liquid diet and advance diet slowly over the next couple of days -Patient can be discharged from surgical standpoint -Continue Metamucil at home Physician Utility System Operator note has been reviewed by physician. Signing provider agrees with the documented findings, assessment, and plan of care. Objective - Vital Signs Vital signs: Vital Signs Temp 97.4 F L 07/31/23 07:13 Pulse 57 L 07/31/23 07:13 Resp 17 07/31/23 07:13 BP 149/81 07/31/23 07:13 Pulse Ox 94 L 07/31/23 07:13 FiO2 Intake & Output 07/30/23 07/31/23 07/31/23 18:59 06:59 18:59 Other: Voiding Method Toilet # Voids 1 2 - Labs CBC & Chem 7: 07/30/23 12:33 07/30/23 08:10 Labs: Abnormal Lab Results - Last 24 Hours (Table) 07/30/23 Range/Units 12:33 Lymphocytes # (Manual) 0.49 L (1.0-4.8) k/uL
[2023-07-31 11:17] LABS: HCT 37.8 % (39.6-50.0); HGB 12.3 g/dL (13.0-17.0); MCH 29.8 pg (27.0-32.0); MCHC 32.5 g/dL (32.0-37.0); MCV 91.5 FL (80.0-97.0); Mean Platelet Volume 12.4 FL (9.5-12.2); NRBC Per 100 WBC 0 X 10*3/uL (0.00-0.01); Platelet Count 194 X 10*3/uL (140-440); RBC 4.13 X 10*6/uL (4.40-5.60); WBC 6.11 X 10*3/uL (4.50-10.00)
--- NOTE | 2023-07-31 12:20 | P.DS ---
Providers Date of admission: 07/29/23 07:53 Expected date of discharge: 07/31/23 Attending physician: J Luis Lenz Consults: 07/29/23 08:09 Consult Physician Urgent Consulting Provider: Riley Harris Consult Reason/Comments: Small bowel obstruction Do you want consulting provider notified?: Yes Primary care physician: [facility] Course: * 83-year-old gentleman with past medical history significant for coronary artery disease history of PCI in LAD, hyperlipidemia, history of antral ulcer, and gastrointestinal bleed, sleep apnea, gastroesophageal reflux disease presents to the emergency bun with complains of new onset abdominal pain that started a day prior to presentation. Patient states he had complained of mid to upper abdomen discomfort this was associated with nausea and episode of recurrent vomiting. Patient did mention he had an episode of loose stool and took Imodium after that he started feeling constipated and did not pass gas. Patient denies associated fever, chills, hematemesis. * Workup in ER included CBC which were WBC of 11.7 hemoglobin 14.9 platelet count of 228. Serum chemistry shows sodium 138 potassium 4.1 and carbon dioxide 20 7B and 25 creatinine 0.86 blood glucose 147 * Patient had a CT abdomen and pelvis completed in ED which showed distended stomach and dilated proximal to mid small bowel throughout the abdomen small b owel loops were dilated. CT findings were consistent with mid to distal small bowel obstruction * A nasogastric tube was placed and consultation ordered for surgery evaluation * 07/30/2023: Patient removed nasogastric tube overnight. Doesn't want another tube placed. At this time diet advanced by general surgery. Nausea vomiting abdominal pain has resolved * Patient tolerating diet, x-ray KUB completed . Diet wasn't was patient able to tolerate full liquid diet, * 07/31/2023: Patient was seen and evaluated bedside, initial plan was to discharge patient home on 07/30 however follow-up x-ray did show bowel distention. Patient was monitored for another 24 hours,follow-up x-ray does show significant improvement in numbness and bowel obstruction. Patient to be discharged home with instructions to advance diet as tolerated REVIEW OF SYSTEMS: Nausea, resolved vomiting, resolved abdominal pain resolved CONSTITUTIONAL: No fever, no malaise, no fatigue. HEENT: No recent visual problems or hearing problems. Denied any sore throat. CARDIOVASCULAR: No chest pain, orthopnea, PND, no palpitations, no syncope. PULMONARY: No shortness of breath, no cough, no hemoptysis. GASTROINTESTINAL:Nausea, vomiting, abdominal pain resolved NEUROLOGICAL: No headaches, no weakness, no numbness. HEMATOLOGICAL: Denies any bleeding or petechiae. GENITOURINARY: Denies any burning micturition, frequency, or urgency. MUSCULOSKELETAL/RHEUMATOLOGICAL: Denies any joint pain, swelling, or any muscle pain. ENDOCRINE: Denies any polyuria or polydipsia. PHYSICAL EXAMINATION: GENERAL: The patient is alert and oriented x3, nasogastric tube removed HEENT: Pupils are round and equally reacting to light. EOMI Normocephalic, atraumatic. No pharyngeal erythema. No thyromegaly. CARDIOVASCULAR: S1 and S2 present. No murmurs, rubs, or gallops. PULMONARY: Chest is clear to auscultation, no wheezing or crackles. ABDOMEN: Soft, bowel sounds present nontender on palpation MUSCULOSKELETAL: No joint swelling or deformity. EXTREMITIES: No cyanosis, clubbing, or pedal edema. NEUROLOGICAL: Gross neurological examination did not reveal any focal deficits. SKIN: No rashes. Assessment: Assessment and plan * Small bowel obstruction RESOLVED * History of coronary artery disease * History of gastroesophageal reflux/antral ulcer * Hypertension * Dyslipidemia * In regards to small bowel obstruction, had nasogastric tube in place, patient removed doesn't want another one in, appreciate input from general surgery, advance diet , * discharge on full liquids with advanced as tolerated, as needed Zofran given, patient cleared for discharge by surgery * In regards to history of coronary artery disease, initial troponin obtained negative, serial troponins negative * In regards to history of hypertension, continue metoprolol Patient Condition at Discharge: Fair Plan - Discharge Summary New Discharge Prescriptions: New Ondansetron Odt [Zofran Odt] 4 mg PO Q8HR PRN 3 Days #9 tab PRN Reason: Nausea And Vomiting Continue L.acidoph,Paracasei, B.lactis [Probiotic] 1 cap PO DAILY Glucosam/Case-Msm1/C/Aris/Bosw [Glucosamine-Chondroitin Tablet] 1 tab PO DAILY Ascorbic Acid [Vitamin C] 1,000 mg PO DAILY Hydrocodone/Acetaminophen [[place] 5-325] 1 tab PO QID Fiber Therapy 500 mg PO DAILY traMADol HCL [Ultram] 50 mg PO BID Mag Hydrox/Al Hydrox/Simeth [Maalox] 30 ml PO Q4HR PRN #0 cup PRN Reason: Heartburn Nitroglycerin Sl Tabs [Nitrostat] 0.4 mg SUBLINGUAL Q5M PRN #25 tab PRN Reason: Chest Pain amLODIPine [Norvasc] 5 mg PO DAILY Atorvastatin [Lipitor] 40 mg PO HS Ferrous Sulfate [Iron (65 MG Elemental)] 325 mg PO DAILY Aspirin EC [Ecotrin Low Dose] 81 mg PO DAILY #30 tablet. Baclofen 10 mg PO HS Famotidine [Pepcid] 40 mg PO AC-BRKFST rOPINIRole HCL [Requip] 0.5 mg PO HS@2300 Furosemide [Lasix] 20 mg PO DAILY Magnesium Oxide [Magnesium] 500 mg PO HS Metoprolol Tartrate [Lopressor] 12.5 mg PO DAILY rOPINIRole HCL [Requip] 1 mg PO DAILY@1700 Discharge Medication List Ascorbic Acid [Vitamin C] 1,000 mg PO DAILY 08/24/15 [History] Fiber Therapy 500 mg PO DAILY 08/24/15 [History] Glucosam/Case-Msm1/C/Aris/Bosw [Glucosamine-Chondroitin Tablet] 1 tab PO DAILY 08/24/15 [History] Hydrocodone/Acetaminophen [[place] 5-325] 1 tab PO QID 08/24/15 [History] L.acidoph,Paracasei, B.lactis [Probiotic] 1 cap PO DAILY 08/24/15 [History] traMADol HCL [Ultram] 50 mg PO BID 09/14/15 [History] Mag Hydrox/Al Hydrox/Simeth [Maalox] 30 ml PO Q4HR PRN #0 cup 05/15/16 [Rx] Nitroglycerin Sl Tabs [Nitrostat] 0.4 mg SUBLINGUAL Q5M PRN #25 tab 05/15/16 [Rx] amLODIPine [Norvasc] 5 mg PO DAILY 09/24/17 [History] Atorvastatin [Lipitor] 40 mg PO HS 02/10/18 [History] Ferrous Sulfate [Iron (65 MG Elemental)] 325 mg PO DAILY 02/10/18 [History] Aspirin EC [Ecotrin Low Dose] 81 mg PO DAILY #30 tablet. 04/12/19 [Rx] Baclofen 10 mg PO HS 07/29/23 [History] Famotidine [Pepcid] 40 mg PO AC-BRKFST 07/29/23 [History] Furosemide [Lasix] 20 mg PO DAILY 07/29/23 [History] Magnesium Oxide [Magnesium] 500 mg PO HS 07/29/23 [History] Metoprolol Tartrate [Lopressor] 12.5 mg PO DAILY 07/29/23 [History] rOPINIRole HCL [Requip] 0.5 mg PO HS@2300 07/29/23 [History] rOPINIRole HCL [Requip] 1 mg PO DAILY@1700 07/29/23 [History] Ondansetron Odt [Zofran Odt] 4 mg PO Q8HR PRN 3 Days #9 tab 07/30/23 [Rx] Follow up Appointment(s)/Referral(s): Roland Rosen MD [Primary Care Provider] - 1-2 days (Office is closed at time of discharge. Please call for follow-up appointment.) Riley Harris MD [STAFF PHYSICIAN] - 08/12/23 2:40 pm Patient Instructions/Handouts: Bowel Obstruction (DC), Full Liquid Diet (DC) Activity/Diet/Wound Care/Special Instructions: Continue full liquid diet for another 24 hours post discharge, advance as tolerated Use Zofran as needed for nausea If symptoms start to recur come back to the emergency immediate Discharge Disposition: HOME SELF-CARE
== END 2023-07-31 13:28 | disposition home or self-care (01) | DRG 390 ==
LOC: EC 05:17 → 5NMEDONC 07:53 → 1SOBS 17:14 → 4SSUR 07-30 16:28
PROVIDERS: ADMIT Hospitalist; ATTEND Hospitalist
PROC: 0D9670Z Drainage of Stomach with Drainage Device, Via Natural or Artificial Opening (ICD-10-PCS; principal; 2023-07-29)
DX: K56.609 Unspecified intestinal obstruction, unspecified as to partial versus complete obstruction (principal); I25.10 Atherosclerotic heart disease of native coronary artery without angina pectoris; Z87.11 Personal history of peptic ulcer disease; K21.9 Gastro-esophageal reflux disease without esophagitis; I10 Essential (primary) hypertension; E78.5 Hyperlipidemia, unspecified; Z91.040 Latex allergy status; F41.9 Anxiety disorder, unspecified; K57.30 Diverticulosis of large intestine without perforation or abscess without bleeding; Z87.19 Personal history of other diseases of the digestive system; Z79.82 Long term (current) use of aspirin; Z79.899 Other long term (current) drug therapy; Z98.61 Coronary angioplasty status
CPT/HCPCS: 36415; 71045; 74018; 74019; 74177; 80048; 80053; 81003; 82150; 83690; 83735; 84100; 84484; 85025; 85027; 93005; 96361; 96374; 96375; 99285

== ENCOUNTER 2024-05-05 09:08 | Emergency (ER) | payer MEDICARE, OTHER ==
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
[2024-05-05] MEDS: ALPRAZolam 0.25 MG TAB PO STA (09:32)
[2024-05-05 09:53] LABS: HCT 42.9 % (39.0-53.0); HGB 14.3 gm/dL (13.0-17.5); MCHC 33.3 g/dL (31.0-37.0); MCV 90.2 fL (80.0-100.0); Platelet Count 267 k/uL (150-450); RBC 4.76 m/uL (4.30-5.90); RDW 13.3 % (11.5-15.5); WBC 5.8 k/uL (3.8-10.6)
[2024-05-05 10:00] LABS: Acetaminophen <10.0 ug/mL; African American GFR (CKD) >90 (>60 ml/min/1.73 sqM); Alcohol <10 mg/dL; Anion Gap 5 mmol/L; Blood Urea Nitrogen 21 mg/dL (9-20); Calcium 9.5 mg/dL (8.4-10.2); Carbon Dioxide 27 mmol/L (22-30); Chloride 106 mmol/L (98-107); Glucose 99 mg/dL (74-99); Non-African American GFR(CKD) 79 (>60 ml/min/1.73 sqM); Potassium 4.2 mmol/L (3.5-5.1); Salicylate <1.0 mg/dL; Sodium 138 mmol/L (137-145)
[2024-05-05] MEDS: LORazepam 2 MG/ML INJ IV STA (10:29)
[2024-05-05 10:51] LABS: Eosinophils # (M) 0.17 k/uL (0-0.7); Lymphocytes # (M) 0.41 k/uL (1.0-4.8); Monocytes # (M) 0.75 k/uL (0-1.0); Neutrophils # (M) 4.47 k/uL (1.3-7.7); Neutrophils % (M) 77 %; Nucleated Red Blood Cells 0 /100 WBC (0-0); RBC Morphology Normal; Total Cells Counted 100
[2024-05-05 12:24] VITALS: RESP 18
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
[2024-05-05 14:20] VITALS: BP 133/99; PULSE 72; TEMP 98.7
== END 2024-05-05 14:22 | disposition home or self-care (01) ==
LOC: EC 09:08
CPT/HCPCS: 36415; 70450; 72125; 80048; 80143; 80179; 80320; 85025; 93005; 96374; 99285

== ENCOUNTER → 2025-02-02 | Outpatient (CLI) | payer MEDICARE, OTHER ==
--- NOTE | 2025-02-02 19:58 | MR ---
INDICATION: Patient age:Male; 84 years old; Reason for study: M48.062 BACK PAIN M54.50 M51.34; [facility]. COMPARISON: CT abdomen and pelvis 07/29/2023, CTA chest 04/10/2019. TECHNIQUE: Multi planar, multi sequence imaging was of the thoracic spine without intravenous contras t. FINDINGS: Multiple anterior wedge compression deformity of the T4 and T8 vertebral bodies with approximately 50 % height loss and no significant retropulsion. Small Schmorl's node versus superior endplate compress ion deformity of the T2 vertebral body. Minimal superior endplate compression deformity of the T3 fidelina tebral body. Multilevel Schmorl's nodes. Type I Modic changes of the endplates around the T8-T9 disc. Mild S-shaped scoliotic curvature of the thoracolumbar spine. Dextrocurvature of the thoracic portio n. No spondylolisthesis. Multilevel disc desiccation. Thoracic spinal cord appears unremarkable. Small posterior disc osteophyte complex in the left parace ntral region at T10-T11. Results in mild effacement of the anterior left thecal sac. Minimal central canal stenosis. No other significant spinal canal or neuroforaminal stenosis identified of the thorac ic spine. IMPRESSION: 1. No evidence for significant spinal canal or neuroforaminal stenosis. T10-T11 small posterior disc osteophyte complex resulting in minimal central canal stenosis. 2. Remote anterior wedge compression deformities of the T4 and T8 vertebral bodies with approximatel y 50% height loss and no significant retropulsion. Minimal superior endplate compression deformity of the T3 vertebral body with additional minimal superimposed compression deformity versus small Schmor l's node involving the T2 vertebral body. 3. S-shaped scoliotic curvature of the thoracolumbar spine. TECHNIQUE: Multi planar, multi sequence imaging was performed of the lumbar spine without intravenou s contrast. FINDINGS: Alignment: The lumbar vertebral bodies have preserved heights. Mild S-shaped scoliotic curvature of t he thoracolumbar spine. Levocurvature of the lumbar portion. Grade 1 retrolisthesis of L5 on S1 witho ut pars defects. Cord: The conus medullaris and the distal spinal cord appear unremarkable with regards to their signa l intensity and morphology. Bones/Discs: Multilevel small Schmorl's nodes. Type I Modic changes involving the inferior endplate o f the L3 vertebral body. Type II Modic changes involving the endplates around the L2-L3 disc. Multile ashley disc desiccation is present. T12-L1: No significant disc pathology. No spinal canal stenosis. No significant neural foraminal sten osis. L1-L2: No significant disc pathology. No significant spinal canal stenosis. The left neural foramen i s patent. Moderate right neural foraminal stenosis. L2-L3: Broad-based disc bulge with ligamentum flavum buckling and bilateral facet arthropathy. Mild s dorothy canal stenosis. Moderate right neural foraminal stenosis. The left neural foramen is patent. L3-L4: Broad-based disc bulge with ligamentum flavum buckling and bilateral facet arthropathy. Right foraminal zone disc protrusion with superior migration approximately 8 mm. Moderate to severe spinal canal stenosis. Moderate left and mild to moderate right neural foraminal stenosis. Severe right neur oforaminal stenosis. Mild to moderate left neural foraminal stenosis. L4-L5: Broad-based disc bulge with ligamentum flavum buckling and bilateral facet arthropathy. Moder ate spinal canal stenosis. [id number] bilateral neuroforaminal stenosis. L5-S1: 1 retrolisthesis. Ligamentum flavum buckling. Bilateral facet arthropathy. No significant spin al canal stenosis. Mild bilateral neural foraminal stenosis. Other findings: Left renal simple appearing thin-walled cysts with largest visualized measuring up t o 3.0 cm. No follow-up recommended. IMPRESSION: 1. Multilevel disc degeneration with associated osteoarthritic changes as described above. L3-L4 dis c protrusion with superior migration within the right foraminal zone. Results in severe right neural foraminal stenosis. This is superimposed upon a broad-based disc bulge resulting in moderate to sever e spinal canal stenosis. Additionally there is moderate spinal canal stenosis at L4-L5 secondary to d isc bulge, ligamentum flavum buckling and facet arthropathy. 2. Grade 1 retrolisthesis of L5 on S1 without pars defects. 3. S-shaped scoliotic curvature of the thoracolumbar spine. [facility], , 02/02/2025 7:56 PM
== END | disposition home or self-care (01) ==
LOC: RADMRIMAIN 15:39
PROVIDERS: ATTEND Orthopaedic Surgery
DX: M48.062 Spinal stenosis, lumbar region with neurogenic claudication (principal); M51.34 Other intervertebral disc degeneration, thoracic region; M51.360 Other intervertebral disc degeneration, lumbar region with discogenic back pain only; M43.17 Spondylolisthesis, lumbosacral region; M47.816 Spondylosis without myelopathy or radiculopathy, lumbar region; M41.85 Other forms of scoliosis, thoracolumbar region
CPT/HCPCS: 72146; 72148

== ENCOUNTER 2025-02-06 14:53 | Emergency (ER) | payer MEDICARE, OTHER ==
[2025-02-06 15:05] VITALS: BP 146/86; PULSE 71; RESP 20; TEMP 98.2
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
[2025-02-06] MEDS: DEXAMETHASONE SOD PHOSPHATE 10 MG/ML 1 ML VIAL IM STA (16:48)
[2025-02-06] MEDS: HYDROcodone/APAP 7.5-325MG 1 EACH TAB PO ONE (16:48)
[2025-02-06] MEDS: LIDOCAINE 4% PATCH TOPICAL ONE (16:49)
== END 2025-02-06 17:44 | disposition home or self-care (01) ==
LOC: EC 14:53
DX: M54.16 Radiculopathy, lumbar region (principal); Z87.891 Personal history of nicotine dependence; Z91.040 Latex allergy status; Z88.8 Allergy status to other drugs, medicaments and biological substances
CPT/HCPCS: 99283; 96372; J1100